=== PATIENT | female | born 1980 | race Caucasian/White ===

== ENCOUNTER 2016-10-02 05:20 | Inpatient (IN) | payer OTHER ==
[2016-09-21 11:08] VITALS: BMI 39.0
--- NOTE | 2016-09-21 11:41 | PAT Medication Instructions ---
Service Date Sep 21, 2016. Current Home Medication List Acetaminophen (Tylenol), 1,000 MG PO PRN Bupropion (Wellbutrin Sr), 150 MG PO AM/1300 Divalproex Sodium (Depakote Er), 1 TAB PO QAM Gemfibrozil (Lopid), 600 MG PO QAM Hydroxyzine Pamoate (Vistaril), 1 CAP PO QAM Prochlorperazine Maleate (Compazine), 10 MG PO Q6H PRN for NAUSEA Promethazine Hcl (Phenergan), 25 MG PO PRN Quetiapine Fumarate (Seroquel), 200 MG PO BID Ranitidine (Zantac), 150 MG PO QPM Topiramate (Topamax), 50 MG PO BID Medication Instructions For Your Scheduled Surgery - Hold the following medications the morning of surgery: Gemfibrozil (Lopid), 600 MG PO QAM - Take the following medications the morning of surgery with a sip of water: Topiramate (Topamax), 50 MG PO BID Prochlorperazine Maleate (Compazine), 10 MG PO Q6H PRN for NAUSEA Promethazine Hcl (Phenergan), 25 MG PO PRN Quetiapine Fumarate (Seroquel), 200 MG PO BID Hydroxyzine Pamoate (Vistaril), 1 CAP PO QAM Acetaminophen (Tylenol), 1,000 MG PO PRN Bupropion (Wellbutrin Sr), 150 MG PO AM/1300 Divalproex Sodium (Depakote Er), 1 TAB PO QAM - Take the following medications as scheduled the night before surgery: Topiramate (Topamax), 50 MG PO BID Ranitidine (Zantac), 150 MG PO QPM Prochlorperazine Maleate (Compazine), 10 MG PO Q6H PRN for NAUSEA Promethazine Hcl (Phenergan), 25 MG PO PRN Quetiapine Fumarate (Seroquel), 200 MG PO BID If you have any questions please call us at [phone] (Shaista Ames PA-C) or [phone] or [phone]
[2016-09-21 12:18] LABS: BASO % 0.3 %; BASO ABS # 0.03 K/uL (0-0.2); COMPLETE YES; EOS % 2.2 %; HEMATOCRIT 41.6 % (37-47); IG% 0.5 %; LYMPH % 43.7 %; LYMPH ABS # 4.94 K/uL (1.2-3.4); MEAN CELL VOLUME 89.3 fL (80-100); MEAN CORPUSCULAR HEMOGLOBIN 31.8 pg (25-34); MEAN CORPUSCULAR HGB CONC 35.6 g/dl (32-36); MEAN PLATELET VOLUME 9.6 fL (7.4-10.4); MONO % 4.4 %; NEUT % 48.9 %; PLATELET COUNT 376 K/uL (130-400); RED BLOOD COUNT 4.66 M/uL (4.2-5.4)
[2016-09-21 12:51] LABS: BUN/CREATININE RATIO 8.3 (10-20); CALCIUM 9.2 mg/dl (8.5-10.1); CREATININE 0.86 mg/dl (0.60-1.20); POTASSIUM 3.9 mmol/L (3.5-5.1)
[2016-10-02] VITALS (11 sets, daily range): BP systolic 114–165; BP diastolic 68–101; PULSE 48–89; TEMP 36.8–37.2; O2SAT 88–99; Ht 162.6 cm; Wt 104.1 kg
[~2016-10-02] VITALS: Ht 162.6 cm; Wt 104.1 kg
[~2016-10-02 05:20] MED LIST: ACET-1256 PO; BUPR-79 PO; DIVA500T3 PO; GEMF600T3 PO; HYDR25CA PO; PROC1TAB5 PO; PROM50TA3 PO; SRQ/200 PO; TOPI50TA16 PO; ZNTT/150 PO
[2016-10-02 05:52] LABS: HEMATOCRIT 42.6 % (37-47); MEAN CELL VOLUME 89.7 fL (80-100); MEAN CORPUSCULAR HEMOGLOBIN 31.4 pg (25-34); MEAN PLATELET VOLUME 9.8 fL (7.4-10.4); PLATELET COUNT 335 K/uL (130-400); RED BLOOD COUNT 4.75 M/uL (4.2-5.4); WHITE BLOOD COUNT 15.11 K/uL (4.8-10.8)
[2016-10-02] MEDS ORDERED: CEFAZOLIN 3000 MG/65 ML D5W 50 ML IV SCH (06:00)
[2016-10-02] MEDS ORDERED: LACTATED RINGER'S 1000ML 1,000 ML IV SCH ×2 (06:00→09:19)
[2016-10-02] MEDS ORDERED: FENTANYL CITRATE INJ 50 MCG/1 ML 2 ML VIAL ONE ×5 (06:07→08:43)
[2016-10-02] MEDS ORDERED: MIDAZOLAM HCL 1 MG/ML 2ML VIAL ONE (06:07)
[2016-10-02] MEDS ORDERED: PROPOFOL IV EMULSION 10 MG/ML 20 ML VIAL IV ONE (06:07)
[2016-10-02] MEDS ORDERED: SUCCINYLCHOLINE CHLORIDE 20 MG/ML 10 ML VIAL IV ONE (06:08)
[2016-10-02] MEDS ORDERED: DEXAMETHASONE SOD INJ 4 MG/ML VIAL ONE ×2 (06:08→07:25)
[2016-10-02] MEDS ORDERED: ONDANSETRON INJ 2 MG/ML 2 ML VIAL ONE (06:08)
[2016-10-02] MEDS ORDERED: LIDOCAINE HCL 2% 2 ML VIAL (20MG/ML) ONE (06:08)
[2016-10-02] MEDS ORDERED: ROCURONIUM BROMIDE 10 MG/ML 5 ML VIAL ONE ×2 (06:09→08:31)
[2016-10-02 06:11] LABS: BASO % 0.3 %; BASO ABS # 0.05 K/uL (0-0.2); COMPLETE YES; EOS % 2.2 %; IG% 0.6 %; LYMPH % 40.1 %; LYMPH ABS # 6.06 K/uL (1.2-3.4); MONO % 6.3 %; NEUT % 50.5 %; PREG INTERNAL NEGATIVE QC NEG CLEAR BACKGROUND; PREG INTERNAL POSITIVE QC POS CONTROL LINE
--- NOTE | 2016-10-02 06:42 | History & Physical Bridge Note ---
H&P Re-Evaluation Bridge Note: I have examined the patient, reviewed the History & Physical and in the interval since the performance of the History & Physical I have noted the following changes of clinical significance: No changes noted
[2016-10-02] MEDS ORDERED: MINERAL OIL LIGHT 10 ML BTL ONE (06:50)
[2016-10-02] MEDS ORDERED: METHYLENE BLUE 0.5% 10 ML VIAL ONE (06:50)
[2016-10-02] MEDS ORDERED: BUPIVACAINE 0.5 % 5 MG/1 ML MPF 30ML VIAL ONE (06:50)
[2016-10-02] MEDS ORDERED: ONDANSETRON INJ 2 MG/ML 2 ML VIAL IV PRN ×2 (08:00→09:30)
[2016-10-02] MEDS ORDERED: PROMETHAZINE HCL INJ 6.25 MG in SODIUM CHLORIDE 0.9% 50ML 50 ML IV PRN (08:00)
[2016-10-02] MEDS ORDERED: ATROPINE SULFATE 0.1 MG/ML 5ML SYR IV PRN (08:00)
[2016-10-02] MEDS ORDERED: EpHEDrine SULFATE INJ 50 MG/ML AMP IV PRN (08:00)
[2016-10-02] MEDS ORDERED: HYDROmorphone INJ 1 MG/ML SYR IV PRN (08:00)
[2016-10-02] MEDS ORDERED: NEOSTIGMINE METHYLSULFATE 5 MG/5 ML SYR ONE (08:25)
[2016-10-02] MEDS ORDERED: GLYCOPYRROLATE INJ 0.2 MG/ML VIAL ONE ×2 (08:25)
--- NOTE | 2016-10-02 09:26 | [facility] Post Operative Brief Note ---
Immediate Operative Summary Operative Date Oct 02, 2016. Pre-Operative Diagnosis Failed Endometrial Ablation, Menorrhagia Post-Operative Diagnosis Same as preoperative. Procedure(s) Performed Total Laparoscopic Hysterectomy, Cystoscopy Surgeon In Flight Refueling System Repairer Surgeon(s) Estimated Blood Loss 100ml Findings Upon laparoscopic exam uterus was slightly enlarged and boggy, at midline and freely mobile. Bilateral ovaries and tubes were normal. Prior bilateral tubal ligation noted. The uterus and cervix were successfully removed laparoscopically. Anesthesia was instructed to push methylene blue. A cystoscopy was performed noting bilateral ureteral openings spilled blue tinged urine indicating both ureters were intact. No injury or suture was noted within the bladder wall. Patient tolerated the surgery well and was sent to recovery with stable vital signs. Fluids (cc crystalloids) 1500 Specimens A. Uterus and Cervix. Drains Giordano to gravity Anesthesia General Complication(s) None Disposition Recovery Room / PACU
[2016-10-02] MEDS ORDERED: MAGNESIUM HYDROXIDE SUSP 30 ML UDC PO PRN (09:30)
[2016-10-02] MEDS ORDERED: IBUPROFEN 600 MG TAB PO PRN (09:30)
[2016-10-02] MEDS ORDERED: SENNA 8.6 MG TAB PO PRN (09:30)
[2016-10-02] MEDS ORDERED: KETOROLAC TROMETHAMINE 30 MG/ML VIAL IV. PRN (09:30)
[2016-10-02] MEDS ORDERED: BISACODYL 10 MG SUPP PR PRN (09:30)
[2016-10-02] MEDS: FENTANYL CITRATE INJ 50 MCG/1 ML 2 ML VIAL IV PRN ×4 (09:46→10:15)
--- NOTE | 2016-10-02 10:04 | OPERATIVE REPORT ---
DATE OF OPERATION: 10/02/2016 PREOPERATIVE DIAGNOSES: 1. Heavy menstrual bleeding. 2. Failed endometrial ablation. POSTOPERATIVE DIAGNOSES: Same. OPERATIVE PROCEDURE: Total laparoscopic hysterectomy and cystoscopy. SURGEON: Dr. Chen. SPEECH LANGUAGE PATHOLOGY ASSISTANT: Dr. Nj. ANESTHESIA: General. ESTIMATED BLOOD LOSS: 100 mL. IV FLUIDS: 1500 mL crystalloids. URINE OUTPUT: 150 mL clear yellow urine. SPECIMENS: Uterus and cervix to pathology. DRAINS: Giordano to gravity. COMPLICATIONS: None. DISPOSITION: Recovery room. OPERATIVE FINDINGS: Upon laparoscopic exam, uterus was slightly enlarged and boggy, midline and freely mobile. Bilateral ovaries and tubes were normal, prior bilateral tubal ligation was noted. The uterus and cervix were successfully removed laparoscopically. Anesthesia was then instructed to push methylene blue. Once the vaginal cuff was closed a cystoscopy was performed noting bilateral ureteral openings spilled blue-tinged urine indicating both ureters were intact. There was no injury or suture noted within the bladder wall as well. The patient tolerated the surgery well and was sent to recovery with stable vital signs. OPERATIVE PROCEDURE IN DETAIL: The patient was taken to the operating room where general anesthesia was administered. Once anesthesia was found to be adequate, the patient was placed in dorsal lithotomy position and was prepped and draped in a manner appropriate for the procedure. A weighted speculum was then placed into the vagina. The anterior lip of the cervix was grasped with a single tooth tenaculum. A medium size VCare uterine manipulator was then placed within the uterus in an anteverted fashion and was suture ligated to the cervix at the 12 o'clock and 6 o'clock position with 0 Vicryl suture. Once the VCare was then placed, a sterile Giordano catheter was placed within the bladder and remained indwelling throughout the entire procedure. At this point the laparoscopic portion of the procedure was ready. Attention was directed towards the abdomen and 0.5% Marcaine was injected below the umbilicus and an 11-mm skin incision was made subumbilically in a horizontal fashion. A Veress needle was then placed within the abdomen. Normal saline was injected with no fecal content aspirated. Pneumoperitoneum was then created. The Veress needle was then removed and an 11 mm trocar was then placed within the abdomen under direct laparoscopic visualization. A second 11 mm skin incision was made on the left side of the abdomen and a second 11 mm trocar was placed within the abdomen under direct laparoscopic visualization. A third 11 mm skin incision was made on the right side of the abdomen and a third 11 mm trocar was placed within the abdomen under direct laparoscopic visualization. A thorough examination of the abdomen and pelvis was then performed. Attention was directed towards the right adnexa where the right round ligament was cauterized and transected. The right uteroovarian ligament was cauterized and transected, continued inferiorly through the broad ligament. The broad ligament was then and the anterior leaf of the broad ligament was cauterized and transected across the lower uterine segment, creating a bladder flap. The bladder was pushed away from the lower uterine segment. Attention was then directed towards the left adnexa, which likewise the round ligament and uteroovarian ligaments were cauterized and transected. We continued inferiorly through the broad ligament. The broad ligament was then and the anterior leaf of the ligament was then cauterized and transected across the lower uterine segment on the left side. The bladder was then pushed away from the lower uterine segment. The ascending uterine arteries were cauterized and transected bilaterally, continued inferiorly through the cardinal uterosacral complex, cauterizing and transecting as we continued inferiorly. Once we were at the level of the VCare, the cervix and uterus were amputated circumferentially with the LigaSure. Once the specimens were completely amputated the uterus and cervix were then removed from the vagina and sent to pathology. A sterile glove was then placed within the vagina to maintain the pneumoperitoneum. The vaginal cuff was then copiously irrigated with warm saline solution and aspirated. The vaginal cuff was then closed with 0 Vicryl suture with the EndoStitch in continuous locking fashion. Upon cystoscopic exam, the bladder was intact. Bilateral ureteral openings spilled blue tinged urine indicating that bilateral ureters were intact. At this point, the cystoscope was removed. A sterile Giordano catheter was replaced back within the bladder. Attention was then directed towards the abdomen where all 3 trocars were removed. The fascia of all 3 incisions were reapproximated with 0 Vicryl suture in an interrupted [id number] fashion. All 3 skin incisions were closed with 4-0 Monocryl in a subcuticular fashion. Excellent hemostasis was noted. All sponge and instrument counts were found to be correct x2. The patient tolerated the surgery well and was sent to recovery with stable vital signs. I attest to the content of the Intraoperative Record and any orders documented therein. Any exceptio ns are noted below.
--- NOTE | 2016-10-02 10:45 | Anesthesiology Progress Note ---
Anesthesia Post Op Note Date & Time Oct 02, 2016 at 10:45 Vital Signs Pain Intensity: 3 Vital Signs Past 12 Hours Date Time Temp Pulse Resp B/P Pulse Ox O2 Delivery O2 Flow Rate FiO2 10/02/16 10:39 37.1 10/02/16 10:30 68 21 10/02/16 10:30 71 21 163/94 96 10/02/16 10:25 54 22 144/80 95 10/02/16 10:25 53 22 10/02/16 10:20 73 21 10/02/16 10:20 72 21 136/97 95 10/02/16 10:19 55 21 10/02/16 10:19 56 21 96 10/02/16 10:15 150/90 10/02/16 10:14 79 18 10/02/16 10:14 78 18 95 10/02/16 10:10 159/98 10/02/16 10:09 78 27 10/02/16 10:09 81 27 95 10/02/16 10:05 162/84 10/02/16 10:04 64 21 10/02/16 10:04 63 21 96 10/02/16 10:00 162/100 10/02/16 09:59 86 26 98 10/02/16 09:59 85 26 10/02/16 09:55 155/88 10/02/16 09:54 72 22 10/02/16 09:54 70 22 93 10/02/16 09:51 149/99 10/02/16 09:49 69 16 94 10/02/16 09:49 70 16 10/02/16 09:46 161/93 10/02/16 09:44 67 21 10/02/16 09:44 67 21 99 10/02/16 09:42 162/97 10/02/16 09:39 65 20 10/02/16 09:39 70 20 150/90 99 10/02/16 09:39 36.4 70 20 150/90 98 Mask 10 10/02/16 05:41 36.8 67 20 135/71 96 Room Air Notes Mental Status: alert / awake / arousable, participated in evaluation Pt Amnestic to Procedure: Yes Nausea / Vomiting: adequately controlled Pain: adequately controlled Airway Patency, RR, SpO2: stable & adequate BP & HR: stable & adequate Hydration State: stable & adequate Anesthetic Complications: no major complications apparent
[2016-10-02] MEDS: OXYCODONE/ACETAMINOPHEN 5-325 TAB PO PRN ×2 (14:02→20:34)
[2016-10-02 19:22] LABS: HEMATOCRIT 38.2 % (37-47)
[2016-10-02] MEDS: TOPIRAMATE 50 MG TAB PO SCH (20:35)
[2016-10-02] MEDS: RANITIDINE HCL 150 MG TAB PO SCH (20:35)
[2016-10-02] MEDS: QUETIAPINE FUMARATE 200 MG TAB PO SCH (20:35)
[2016-10-02] MEDS ORDERED: TOPIRAMATE 25 MG TAB PO SCH (21:00)
[2016-10-03 03:30] VITALS: BP 123/73; PULSE 77; TEMP 37; O2SAT 96
[2016-10-03 03:31] VITALS: O2SAT 94
[2016-10-03 05:00] VITALS: O2SAT 93
[2016-10-03 07:09] LABS: BASO % 0.1 %; BASO ABS # 0.02 K/uL (0-0.2); COMPLETE YES; EOS % 0.3 %; HEMATOCRIT 34.9 % (37-47); IG% 0.3 %; LYMPH % 22.8 %; MEAN CELL VOLUME 86.8 fL (80-100); MEAN CORPUSCULAR HEMOGLOBIN 30.1 pg (25-34); MEAN CORPUSCULAR HGB CONC 34.7 g/dl (32-36); MEAN PLATELET VOLUME 9.7 fL (7.4-10.4); MONO % 7.2 %; NEUT % 69.3 %; PLATELET COUNT 302 K/uL (130-400); RED BLOOD COUNT 4.02 M/uL (4.2-5.4); WHITE BLOOD COUNT 17.58 K/uL (4.8-10.8)
[2016-10-03 07:45] VITALS: BP 134/85; PULSE 69; TEMP 37.1; O2SAT 95
[2016-10-03] MEDS: OXYCODONE/ACETAMINOPHEN 5-325 TAB PO PRN ×2 (08:21→08:25)
[2016-10-03] MEDS: RANITIDINE HCL 150 MG TAB PO SCH (08:22)
[2016-10-03] MEDS: QUETIAPINE FUMARATE 200 MG TAB PO SCH (08:23)
[2016-10-03] MEDS: TOPIRAMATE 50 MG TAB PO SCH (08:23)
--- NOTE | 2016-10-03 08:31 | Surgery Progress Note ---
Surgery Progress Note Date of Service Oct 03, 2016. Subjective Post OP Day: 1 + diet (tolerating PO food and meds), + pain controlled, No SOB, No bowel movement, No chest pain, No complaints, No nausea, No vomiting Objective Vital Signs: Date Time Temp Pulse Resp B/P Pulse Ox O2 Delivery O2 Flow Rate FiO2 10/03/16 05:00 93 Room Air 10/03/16 03:31 94 Nasal Cannula 1.0 10/03/16 03:30 37.0 77 18 123/73 96 Nasal Cannula 2.0 10/02/16 23:20 37.1 89 20 132/75 94 Nasal Cannula 2.0 10/02/16 23:20 94 Nasal Cannula 2.0 10/02/16 21:50 93 Nasal Cannula 2.0 10/02/16 21:50 88 Room Air 10/02/16 19:15 36.9 84 20 159/72 98 Nasal Cannula 2.0 10/02/16 16:15 96 Nasal Cannula 2.0 10/02/16 16:15 36.9 87 16 127/76 94 Nasal Cannula 2.0 10/02/16 13:55 36.8 56 18 165/82 96 Room Air 10/02/16 12:45 72 20 114/68 99 Nasal Cannula 2.0 10/02/16 11:45 36.9 81 20 151/91 98 Nasal Cannula 2.0 10/02/16 11:16 96 Nasal Cannula 2.0 10/02/16 11:15 48 16 126/82 89 Room Air 10/02/16 10:45 96 Nasal Cannula 2.0 10/02/16 10:45 37.2 79 16 148/101 96 Nasal Cannula 2.0 10/02/16 10:45 Nasal Cannula 2.0 10/02/16 10:39 37.1 10/02/16 10:30 68 21 10/02/16 10:30 71 21 163/94 96 10/02/16 10:25 54 22 144/80 95 10/02/16 10:25 53 22 10/02/16 10:20 73 21 10/02/16 10:20 72 21 136/97 95 10/02/16 10:19 55 21 10/02/16 10:19 56 21 96 10/02/16 10:15 150/90 10/02/16 10:14 79 18 10/02/16 10:14 78 18 95 10/02/16 10:10 159/98 10/02/16 10:09 78 27 10/02/16 10:09 81 27 95 10/02/16 10:05 162/84 10/02/16 10:04 64 21 10/02/16 10:04 63 21 96 10/02/16 10:00 162/100 10/02/16 09:59 86 26 98 10/02/16 09:59 85 26 10/02/16 09:55 155/88 10/02/16 09:54 72 22 10/02/16 09:54 70 22 93 10/02/16 09:51 149/99 10/02/16 09:49 69 16 94 10/02/16 09:49 70 16 10/02/16 09:46 161/93 10/02/16 09:44 67 21 10/02/16 09:44 67 21 99 10/02/16 09:42 162/97 10/02/16 09:39 65 20 10/02/16 09:39 70 20 150/90 99 10/02/16 09:39 36.4 70 20 150/90 98 Mask 10 General Appearance: WD/WN, no apparent distress Head: normocephalic, atraumatic Neck: supple, no adenopathy, thyroid normal, no JVD, no carotid bruits, trachea midline Respiratory/Chest: chest non-tender, lungs clear, normal breath sounds, no respiratory distress, no accessory muscle use Cardiovascular: regular rate, rhythm, no edema, no gallop, no JVD, no murmur Abdomen: normal bowel sounds, non tender, non distended, soft, no organomegaly , no pulsatile mass Incision(s): clean, dry, intact, no erythema, no drainage Extremities: normal range of motion, non-tender, normal inspection, no pedal edema, no calf tenderness, normal capillary refill, pelvis stable Laboratory Results: Results Past 24 Hours Test 10/02/16 19:12 10/03/16 06:47 Range/Units Hemoglobin 13.5 12.1 12.0-16.0 g/dL Hematocrit 38.2 34.9 37-47 % White Blood Count 17.58 4.8-10.8 K/uL Red Blood Count 4.02 4.2-5.4 M/uL Mean Corpuscular Volume 86.8 80-100 fL Mean Corpuscular Hemoglobin 30.1 25-34 pg Mean Corpuscular Hemoglobin Concent 34.7 32-36 g/dl Platelet Count 302 130-400 K/uL Mean Platelet Volume 9.7 7.4-10.4 fL Neutrophils (%) (Auto) 69.3 % Lymphocytes (%) (Auto) 22.8 % Monocytes (%) (Auto) 7.2 % Eosinophils (%) (Auto) 0.3 % Basophils (%) (Auto) 0.1 % Neutrophils # (Auto) 12.18 1.4-6.5 K/uL Lymphocytes # (Auto) 4.00 1.2-3.4 K/uL Monocytes # (Auto) 1.27 0.11-0.59 K/uL Eosinophils # (Auto) 0.05 0-0.5 K/uL Basophils # (Auto) 0.02 0-0.2 K/uL RDW Standard Deviation 42.8 36.4-46.3 fL RDW Coefficient of Variation 13.6 11.5-14.5 % Immature Granulocyte % (Auto) 0.3 % Immature Granulocyte # (Auto) 0.06 0.00-0.02 K/uL Assessment & Plan Lap hysterectomy Day #1 pt doing well disch home with instructions
[2016-10-03] MEDS ORDERED: OXYC-57 PO (08:34)
--- NOTE | 2016-10-03 08:34 | Discharge Instructions ---
Discharge Instructions Admission Reason for Admission: Heavy Menstral Bleeding Discharge Discharge Diagnosis / Problem: Discharge Goals Goal(s): Continuing SSIS ARCHITECT care Activity Recommendations Activity Limitations: as noted below . Current Hospital Diet Patient's current hospital diet: Regular Diet Discharge Diet Recommended Diet: Regular Diet Procedures Procedures Performed: Total Laparoscopic Hysterectomy, Cystoscopy Pending Studies Studies pending at discharge: no Medical Emergencies . Who to Call and When: Medical Emergencies: If at any time you feel your situation is an emergency, please call 911 immediately. . Non-Emergent Contact Non-Emergency issues call your: Specialist Call Non-Emergent contact if: you have a fever, your pain is not controlled, wound has increased drainage . . "Provider Documentation" section prepared by Shaheen Nj. VTE Core Measure Inpt VTE Proph given/why not?: Treatment not indicated
[2016-10-03] MEDS ORDERED: BuPROPion SR 150 MG TABCR PO SCH (09:00)
[2016-10-03] MEDS ORDERED: GEMFIBROZIL 600 MG TAB PO SCH (09:00)
[2016-10-03] MEDS ORDERED: DIVALPROEX 500 MG EXTENDED RELEASE TAB PO SCH (09:00)
[2016-10-03 09:19] VITALS: BP 134/85; PULSE 69; TEMP 37.1; O2SAT 95
--- NOTE | 2016-10-06 07:16 | Discharge Summary ---
Discharge Summary Date of Service Oct 06, 2016. Discharge Summary Admission Date: Oct 02, 2016 at 05:30 Discharge Date: Oct 03, 2016 Discharge Disposition: Home Principal Diagnosis: Heavy menstrual Bleeding, Failed Endometrial Ablation Procedures: Total Laparoscopic Hysterectomy, Cystoscopy Medication Reconciliation New Medications: Oxycodone/Acetaminophen 5MG/325MG (Percocet 5MG/325MG) Tab 1-2 TAB PO Q4H PRN for NOLAN, Cramping, edema, #30 TAB PAIN Continued Medications: Acetaminophen (Tylenol) 500 Mg Tab 1000 MG PO PRN, TAB Bupropion (Wellbutrin Sr) 150 Mg Ertab 150 MG PO AM/1300, TAB Divalproex Sodium (Depakote Er) 500 Mg Tab 1 TAB PO QAM, TAB 2 Refills Gemfibrozil (Lopid) 600 Mg Tab 600 MG PO QAM, TAB Hydroxyzine Pamoate (Vistaril) 25 Mg Cap 1 CAP PO QAM for 30 Days, #30 CAP Prochlorperazine Maleate (Compazine) 10 Mg Tab 10 MG PO Q6H PRN for NAUSEA, TAB Promethazine Hcl (Phenergan) 50 Mg Tab 25 MG PO PRN, TAB Quetiapine Fumarate (Seroquel) 200 Mg Tab 200 MG PO BID, TAB Ranitidine (Zantac) 150 Mg Tab 150 MG PO QPM, TAB Topiramate (Topamax) 50 Mg Tab 50 MG PO BID, TAB Admission Information HPI (per Admitting provider): Patient is a 36 y/o with a long history of heavy menstrual bleeding and has tried multiple medical treatments along with an endometrial ablation in March of 2016. She continued to have heavy and painful periods and therefore wanted to proceed with definitive surgery via laparoscopic hysterectomy. Risks, benefits and alternatives were discussed and informed consent was signed. Physical Exam (per Admitting): General Appearance: WD/WN, no apparent distress Respiratory/Chest: chest non-tender, lungs clear Cardiovascular: regular rate, rhythm Abdomen/GI: normal bowel sounds, soft Neurologic/Psych: alert, oriented x 3 Skin: normal color, warm/dry, no rash Hospital Course Patient underwent a scheduled total laparoscopic hysterectomy on the day of admission without complications. Her postoperative recovery was uncomplicated. On POD # 1 she was ambulating without difficulty. Pain was well controlled. Tolerating regular diet. Incisions were clean,dry and intact. She was discharged on POD # 1 with discharge instructions. Total time spent on discharge = 20 mins This includes examination of the patient, discharge planning, medication reconciliation, and communication with other providers. Discharge Instructions POST OPERATIVE: BOWEL FUNCTION/MEDICATIONS: 1. Constipation pain and discomfort are the most common complaints 5-7 days after surgery. Points 2-6 address the things that can help. 2. Chewing gum can help stimulate the gut and help improve digestion and motility. 3. Milk of Magnesia 1-2 times per day until return of bowel function. 4. Colace is a stool softener that helps. Taking this 2-3 times per day until bowel function returns to normal is highly recommended. 5. Dulcolax is a laxative that may be used if several days have passed without a bowel movement. Alternatively Miralax may be used daily instead. 6. Drink plenty of fluids as this will also reduce constipation. 7. Narcotic pain medications will be prescribed by your physician. They are safe to use and we encourage you to use them. If you are not allergic, ibuprofen will also be prescribed. Many patients will be able to transition off of the narcotic medications to ibuprofen by postoperative day 3. ACTIVITY RECOMMENDATIONS: 1. Get plenty of rest and listen to your body. If you are tired, take a nap. 2. You may shower, but do not take a tub bath until you see your doctor at the 2 week post operative visit. 3. Absolutely NO intercourse and nothing in the vagina until you are examined by your doctor at the 6 week visit. At that visit it will be determined when such activities can be resumed. This can range from 6-12 weeks after your surgery depending on healing time. 4. The main physical activity in the first week should be walking. By the second week you can slowly increase activity. There are no limits on walking up and down stairs. 5. Do not lift more than 5-10 lbs for 4 weeks. Remember the "one-handed rule", i.e. if you can lift something with only one hand it's likely okay. 6. Minimize letter of credit clerk like vacuuming and exercising for 4 weeks. "Overdoing it" can lead to incisions not healing, pain and vaginal bleeding , so again, listen to your body. 7. Driving can be resumed when you feel able. Do not drive within 24 hours of taking a narcotic medication. EXPECTATIONS: 1. Vaginal spotting, bleeding and discharge are common after surgery. There may even be an odor to the discharge which is often related to sutures used in the vagina. If you experience heavy vaginal bleeding, call the office number day or night [phone]. 2. Bladder discomfort is common after surgery from the catheter. This usually resolves in 1-2 weeks. 3. By the end of the 3rd or 4th week you should be feeling much better. It may take up to 6 weeks for your energy levels to return to normal. 4. Narcotic medications have side effects such as: dizziness, headache, nausea and/or vomiting. If you suspect your pain medication is causing problems, call our office and we may be able to prescribe an alternate medication. 5. The skin incisions are often covered with a liquid bandage. This will gradually peel off over time. CALL THE OFFICE IF YOU HAVE ANY OF THE FOLLOWIN. Temperature of 101 degrees or higher. 2. Severe abdominal or pelvic pain not relieved by pain medication. 3. Persistent nausea or vomiting. 4. Increased pain with urination or difficulty urinating. 5. Bright red bleeding that soaks more than 1 pad per hour. CONTACT PHONE NUMBERS: Main Office: [phone] FOLLOW-UP: Post-Operative Appointments: * Individual instructions will have been given about the timing of your first examination, but this is usually at the end of the second week home. * You will need to call the office at [phone] soon after discharge to make the appointment for your post-op check-up if it has not already been scheduled. * Additional information regarding activity, sexual intercourse and when to return to work will be given at this appointment. WE WISH YOU A SPEEDY RECOVERY!
[2017-04-21] MEDS ORDERED: HYDR-5688 PO (15:08)
== END 2016-10-03 10:15 | disposition home or self-care (01) | DRG 743 ==
LOC: ENRESERVDT → ENRESERVTM → C.ACU 05:20 → C.MS4N 05:30
PROVIDERS: ADMIT Obstetrics & Gynecology; ATTEND Obstetrics & Gynecology
PROC: 0TJB8ZZ Inspection of Bladder, Via Natural or Artificial Opening Endoscopic (ICD-10-PCS; principal; 2016-10-02 07:00)
PROC: 0UT94ZZ Resection of Uterus, Percutaneous Endoscopic Approach (ICD-10-PCS; principal; 2016-10-02 07:00)
DX: N92.0 Excessive and frequent menstruation with regular cycle (principal); F17.210 Nicotine dependence, cigarettes, uncomplicated

== ENCOUNTER → 2017-04-16 | Outpatient (CLI) | payer OTHER ==
[~2017-04-16] MED LIST changes: +HYDR-5688 PO; +OXYC-57 PO
[2017-04-16 16:36] LABS: HEMATOCRIT 41.7 % (37-47); MEAN CELL VOLUME 90.1 fL (80-100); MEAN CORPUSCULAR HEMOGLOBIN 31.5 pg (25-34); MEAN PLATELET VOLUME 10.5 fL (7.4-10.4); PLATELET COUNT 372 K/uL (130-400); RED BLOOD COUNT 4.63 M/uL (4.2-5.4)
[2017-04-16 16:42] LABS: INR 0.9 (0.9-1.1)
[2017-04-16 16:45] LABS: BLOOD UREA NITROGEN 10 mg/dl (7-18); BUN/CREATININE RATIO 11.4 (10-20); CALCIUM 9.6 mg/dl (8.5-10.1); CARBON DIOXIDE 26 mmol/L (21-32); CHLORIDE 108 mmol/L (98-107); CREATININE 0.87 mg/dl (0.60-1.20); GLUCOSE 86 mg/dl (70-99); POTASSIUM 4.3 mmol/L (3.5-5.1); SODIUM 138 mmol/L (136-145)
[2017-04-16 17:08] LABS: BASO % 0.3 %; BASO ABS # 0.04 K/uL (0-0.2); COMPLETE YES; EOS % 2.1 %; IG% 0.5 %; LYMPH % 46.3 %; LYMPH ABS # 5.69 K/uL (1.2-3.4); MONO % 5.9 %; NEUT % 44.9 %
== END | disposition home or self-care (01) ==
LOC: C.LABBFT 14:19
PROVIDERS: ATTEND Orthopaedic Surgery
DX: M25.531 Pain in right wrist (principal)

== ENCOUNTER → 2017-04-21 | Day surgery (SDC) | payer OTHER ==
[2017-04-19 15:16] VITALS: BMI 38.0
[~2017-04-21] VITALS: Ht 162.6 cm; Wt 101.8 kg
[~2017-04-21] MED LIST changes: +ATROPINE SULFATE 0.1 MG/ML 5ML SYR IV PRN; +BUPIVACAINE 0.5 % 5 MG/1 ML MPF 30ML VIAL ONE; +BUPIVACAINE/EPINEPHRINE 0.5% MPF 1:200,000 30 ML VIAL ONE; +CEFAZOLIN 2000 MG/60 ML D5W IV SCH; +DEXAMETHASONE SOD INJ 4 MG/ML VIAL ONE; +EpHEDrine SULFATE INJ 50 MG/ML AMP IV PRN; +FENTANYL CITRATE INJ 50 MCG/1 ML 2 ML VIAL IV PRN; +FENTANYL CITRATE INJ 50 MCG/1 ML 2 ML VIAL ONE; +HYDROCODONE/ACETAMOPHEN 5/325MG TAB PO PRN; +HYDROmorphone INJ 1 MG/ML SYR IV PRN; +KETAMINE HCL INJ 50 MG/ML 10 ML VIAL ONE; +LABETALOL HCL IV 5 MG/ML 20ML IV PRN; +LACTATED RINGER'S 1000ML 1,000 ML IV SCH; +LACTATED RINGER'S 1000ML 500 ML IV ONE; +LIDOCAINE HCL 2% 2 ML VIAL (20MG/ML) ONE; +MEPERIDINE HCL 25 MG/ML CARP IV PRN; +METHYLPREDNISOLONE ACETATE 80 MG/ML VIAL ONE; +MIDAZOLAM HCL 1 MG/ML 2ML VIAL ONE; +ONDANSETRON INJ 2 MG/ML 2 ML VIAL IV PRN; +ONDANSETRON INJ 2 MG/ML 2 ML VIAL ONE; +PROMETHAZINE HCL INJ 6.25 MG in SODIUM CHLORIDE 0.9% 50ML 50 ML IV PRN; +PROPOFOL IV EMULSION 10 MG/ML 20 ML VIAL IV ONE; +SODIUM CHLORIDE 0.9% 1000ML 1,000 ML IV SCH
--- NOTE | 2017-04-21 07:13 | History and Physical ---
History & Physical Date Apr 21, 2017. Chief Complaint Patient presents with a painful volar ganglion right wrist History of Present Illness The patient is a 36 year old female with complaints of painful volar ganglion right wrist Nourse wants bracing and activity modification Past Medical/Surgical History Medical Problems: (1) Bipolar disorder (2) DEPRESSIVE DISORDER NEC (3) Heavy menstrual bleeding (4) Left arm numbness (5) Migraine (6) PTSD (post-traumatic stress disorder) (7) Right ankle sprain (8) Right arm numbness (9) Sprain of knee (10) TOBACCO USE DISORDER Surgical Problems: (1) Hx of cholecystectomy (2) S/P laparoscopic hysterectomy Additional History Hepatic Disease: No Endocrine Disorder: No Kidney Disease: No Hypertension: No Heart Disease: No Bleeding Tendencies: No Infectious Diseases: No Allergies Coded Allergies: Aspirin (Verified Allergy, Severe, CAN'T BREATH, 04/19/17) Food (Verified Allergy, Unknown, ALL SEAFOOD-SWELLING SOB HIVES WITH EATING OR SMELLING, 04/19/17) Home Medications Scheduled Acetaminophen (Tylenol), 1,000 MG PO PRN Bupropion (Wellbutrin Sr), 150 MG PO QAM Divalproex Sodium (Depakote Er), 1 TAB PO BID Gemfibrozil (Lopid), 600 MG PO QAM Hydroxyzine Pamoate (Vistaril), 1 CAP PO TID Quetiapine Fumarate (Seroquel), 200 MG PO BID Ranitidine (Zantac), 150 MG PO DAILY Topiramate (Topamax), 50 MG PO BID Physical Examination Skin: warm/dry, no rash Eyes: normal inspection, EOMI, sclerae normal ENT: normal ENT inspection, pharynx normal Head: normocephalic, atraumatic Neck: supple, no adenopathy, trachea midline Respiratory/Chest: lungs clear, normal breath sounds, no respiratory distress Cardiovascular: regular rate, rhythm, no edema, no murmur Abdomen / GI: normal bowel sounds, non tender Back: normal inspection Extremities: normal inspection, normal range of motion, + pertinent finding Neurologic/Psych: no motor/sensory deficits, alert, normal reflexes, oriented x 3 Diagnosis Painful volar ganglion right wrist plan for surgical excision Plan of Treatment Painful volar ganglion plan for excision and postoperative immobilization
--- NOTE | 2017-04-21 07:16 | History and Physical ---
History & Physical Date Apr 21, 2017. Chief Complaint Volar ganglion right wrist painful large muscle conservative therapy painful cyst right medial heel History of Present Illness The patient is a 36 year old female with complaints of painful for ganglion right wrist painful cyst right medial heel Past Medical/Surgical History Medical Problems: (1) Bipolar disorder (2) DEPRESSIVE DISORDER NEC (3) Heavy menstrual bleeding (4) Left arm numbness (5) Migraine (6) PTSD (post-traumatic stress disorder) (7) Right ankle sprain (8) Right arm numbness (9) Sprain of knee (10) TOBACCO USE DISORDER Surgical Problems: (1) Hx of cholecystectomy (2) S/P laparoscopic hysterectomy Additional History Hepatic Disease: No Endocrine Disorder: No Kidney Disease: No Hypertension: No Heart Disease: No Bleeding Tendencies: No Infectious Diseases: No Allergies Coded Allergies: Aspirin (Verified Allergy, Severe, CAN'T BREATH, 04/19/17) Food (Verified Allergy, Unknown, ALL SEAFOOD-SWELLING SOB HIVES WITH EATING OR SMELLING, 04/19/17) Home Medications Scheduled Acetaminophen (Tylenol), 1,000 MG PO PRN Bupropion (Wellbutrin Sr), 150 MG PO QAM Divalproex Sodium (Depakote Er), 1 TAB PO BID Gemfibrozil (Lopid), 600 MG PO QAM Hydroxyzine Pamoate (Vistaril), 1 CAP PO TID Quetiapine Fumarate (Seroquel), 200 MG PO BID Ranitidine (Zantac), 150 MG PO DAILY Topiramate (Topamax), 50 MG PO BID Physical Examination Skin: warm/dry, no rash Eyes: normal inspection, EOMI, sclerae normal ENT: normal ENT inspection, pharynx normal Head: normocephalic, atraumatic Neck: supple, no adenopathy, trachea midline Respiratory/Chest: lungs clear, normal breath sounds, no respiratory distress Cardiovascular: regular rate, rhythm, no edema, no murmur Abdomen / GI: normal bowel sounds, non tender Back: normal inspection Extremities: normal inspection, normal range of motion Neurologic/Psych: no motor/sensory deficits, alert, normal reflexes, oriented x 3 Diagnosis Painful right wrist painful cyst right medial heel plan for excision of volar ganglion right wrist aspiration injection of right medial heel Plan of Treatment Postoperative pain management and immobilization antibiotics
[2017-04-21 11:49] VITALS: BP 143/93; PULSE 71; TEMP 36.8; O2SAT 98; Ht 162.6 cm; Wt 101.8 kg
--- NOTE | 2017-04-21 15:09 | Discharge Instructions ---
Discharge Instructions Date of Service Apr 21, 2017. Visit Reason for Visit: Right Wrist Ganglion Cyst Discharge Discharge Diagnosis / Problem: right wrist ganglion cyst Discharge Goals Goal(s): Decrease discomfort, Improve function, Increase independence Activity Recommendations Activity Limitations: as noted below Lifting Limitations: no more than 5 pounds Anesthesia . Post Anesthesia Instructions: If you have had General Anesthesia or IV Sedation: * Do not drive today. * Resume driving when surgeon permits. * Do not make important decisions or sign legal documents today. * Call surgeon for: 1. Temperature elevations greater than 101 degrees F. 2. Uncontrollable pain. 3. Excessive bleeding. 4. Persistent nausea and vomiting. 5. Medication intolerance (nausea, vomiting or rash). * For nausea and vomiting use only clear liquids such as: tea, soda, bouillon until nausea subsides, then gradually increase diet as tolerated. * If you have any concerns or questions, call your surgeon's office. If physician is unavailable and it is an emergency, call 911 or go to the nearest emergency room. . Instructions / Follow-Up Instructions / Follow-Up ACTIVITY RECOMMENDATIONS: * Avoid lifting anything heavier than a medium water glass until your first post operative visit. SPECIAL CARE INSTRUCTIONS: * Your bandage should be left in place until 48 hours after your surgery. * Some drainage onto the dressing may occur. This is normal. * If the bandage feels excessively tight, you may loosen the elastic bandage. Then call the physician's office for further instructions. * If possible, keep your hand elevated above the level of your heart for the first 2 post operative days. You may use a sling if necessary. * You should move your fingers regularly (50-100 motions per hour) unless otherwise instructed. SPECIAL PRECAUTIONS: * If you notice increased drainage, fever over 101 degrees F. or severe, unremitting pain, call your physician/office at . * You may have been prescribed pain medication. If you experience nausea and/or skin rash, discontinue this medication and contact our office for an alternative medication. FOLLOW UP VISIT: If appointment is not already scheduled: Please call [facility] to make a follow-up appointment after your surgery at . Diet Recommendations Recommended Home Diet: resume previous diet Pending Studies Studies pending at discharge: no Medical Emergencies . Who to Call and When: Medical Emergencies: If at any time you feel your situation is an emergency, please call 911 immediately. . Non-Emergent Contact Non-Emergency issues call your: Primary Care Provider, Surgeon . . "Provider Documentation" section prepared by Jose Gibson. . [place] Drug Monitoring Program Search Results: patient reviewed within database, no issues identified
[2017-04-21] MEDS: FENTANYL CITRATE INJ 50 MCG/1 ML 2 ML VIAL IV PRN ×2 (15:44→15:49)
--- NOTE | 2017-04-21 15:48 | [facility] Operative Report ---
Operative Report Operative Date Apr 21, 2017. Pre-Operative Diagnosis Painful Volar ganglion cyst right wrist. painful right medial heel Post-Operative Diagnosis Volar ganglion right wrist cyst medial right heel Procedure(s) Performed Right Wrist Excision Volar Ganglion Cyst; Right Foot Aspiration and Injection of the Medial Heel Surgeon Dr. Shelby Photoresist Contact Printer Surgeon(s) none Estimated Blood Loss 2mL Findings Painful volar ganglion right wrist painful sensory medial heel Specimens A. Right wrist ganglion cyst Complication(s) None Disposition Recovery Room / PACU Indications Painful volar ganglion right wrist painful cyst medial aspect right heel Description of Procedure After proper prepping draping the right upper extremity a 2 severe incisions made over the region of the volar aspect of the right painful ganglion the second was carried down to the stalk of the gangrenous was particular rash instruction radial artery at all times subsequently the wound was irrigated. Steris a solution the space of the stalk was amputated the cyst was sent for pathology as is without a ganglion cyst the stalk was sutured with 4-0 Monocryl subcutaneous and skin was closed with 5-0 Monocryl and Steri-Strips sterile compressive dressing placed as well as a volar splint and under sterile conditions the right medial aspect of the palpable cyst over the medial heel was aspirated and injected with half cc of Depo-Medrol the patient usual taken cover stable condition. I attest to the content of the Intraoperative Record and any orders documented therein. Any exceptions are noted below.
--- NOTE | 2017-04-21 16:22 | Anesthesiology Progress Note ---
Anesthesia Post Op Note Date & Time Apr 21, 2017 at 16:21 Vital Signs Pain Intensity: 4 Vital Signs Past 12 Hours Date Time Temp Pulse Resp B/P (MAP) Pulse Ox O2 Delivery O2 Flow Rate FiO2 04/21/17 16:15 36.8 50 19 147/86 99 Room Air 04/21/17 16:05 60 18 149/107 98 Room Air 04/21/17 15:55 49 16 149/106 99 Oxymask 10 04/21/17 15:45 65 15 155/92 96 Oxymask 10 04/21/17 15:36 36.0 80 16 154/97 97 Oxymask 10 04/21/17 11:49 36.8 71 20 143/93 (110) 98 Room Air Notes Mental Status: alert / awake / arousable, participated in evaluation Pt Amnestic to Procedure: Yes Nausea / Vomiting: adequately controlled Pain: adequately controlled Airway Patency, RR, SpO2: stable & adequate BP & HR: stable & adequate Hydration State: stable & adequate Anesthetic Complications: no major complications apparent
[2017-04-21 16:30] VITALS: BP 156/75; PULSE 54; TEMP 36.7; O2SAT 100
[2017-04-21 17:00] VITALS: BP 142/71; PULSE 63; O2SAT 97
[2017-04-21 17:30] VITALS: BP 143/85; PULSE 63; TEMP 36.8; O2SAT 97
== END | disposition home or self-care (01) ==
LOC: C.ACU 11:23
PROVIDERS: ATTEND Orthopaedic Surgery
DX: M67.431 Ganglion, right wrist (principal); L72.8 Other follicular cysts of the skin and subcutaneous tissue; F31.9 Bipolar disorder, unspecified; F43.10 Post-traumatic stress disorder, unspecified; Z72.0 Tobacco use; Z79.899 Other long term (current) drug therapy

== ENCOUNTER → 2017-09-16 | Outpatient (CLI) | payer OTHER ==
[~2017-09-16] MED LIST changes: -ACET-1256 PO; -ATROPINE SULFATE 0.1 MG/ML 5ML SYR IV PRN; -BUPIVACAINE 0.5 % 5 MG/1 ML MPF 30ML VIAL ONE; -BUPIVACAINE/EPINEPHRINE 0.5% MPF 1:200,000 30 ML VIAL ONE; -CEFAZOLIN 2000 MG/60 ML D5W IV SCH; -DEXAMETHASONE SOD INJ 4 MG/ML VIAL ONE; -EpHEDrine SULFATE INJ 50 MG/ML AMP IV PRN; -FENTANYL CITRATE INJ 50 MCG/1 ML 2 ML VIAL IV PRN; -FENTANYL CITRATE INJ 50 MCG/1 ML 2 ML VIAL ONE; -HYDROCODONE/ACETAMOPHEN 5/325MG TAB PO PRN; -HYDROmorphone INJ 1 MG/ML SYR IV PRN; -KETAMINE HCL INJ 50 MG/ML 10 ML VIAL ONE; -LABETALOL HCL IV 5 MG/ML 20ML IV PRN; -LACTATED RINGER'S 1000ML 1,000 ML IV SCH; -LACTATED RINGER'S 1000ML 500 ML IV ONE; -LIDOCAINE HCL 2% 2 ML VIAL (20MG/ML) ONE; -MEPERIDINE HCL 25 MG/ML CARP IV PRN; -METHYLPREDNISOLONE ACETATE 80 MG/ML VIAL ONE; -MIDAZOLAM HCL 1 MG/ML 2ML VIAL ONE; -ONDANSETRON INJ 2 MG/ML 2 ML VIAL IV PRN; -ONDANSETRON INJ 2 MG/ML 2 ML VIAL ONE; -OXYC-57 PO; -PROC1TAB5 PO; -PROM50TA3 PO; -PROMETHAZINE HCL INJ 6.25 MG in SODIUM CHLORIDE 0.9% 50ML 50 ML IV PRN; -PROPOFOL IV EMULSION 10 MG/ML 20 ML VIAL IV ONE; +RANI150T85 PO; -SODIUM CHLORIDE 0.9% 1000ML 1,000 ML IV SCH; -ZNTT/150 PO
[2017-09-16 18:07] LABS: ALBUMIN 3.6 gm/dl (3.4-5.0); ALT/SGPT 29 U/L (12-78); BLOOD UREA NITROGEN 10 mg/dl (7-18); CALCIUM 9.6 mg/dl (8.5-10.1); CARBON DIOXIDE 23 mmol/L (21-32); CHOLESTEROL 242 mg/dl (0-200); CREATININE 0.85 mg/dl (0.60-1.20); GLUCOSE 77 mg/dl (70-99); POTASSIUM 4.1 mmol/L (3.5-5.1); SODIUM 137 mmol/L (136-145)
[2017-09-16 18:18] LABS: ALKALINE PHOSPHATASE 63 U/L (45-117); AST/SGOT 14 U/L (15-37); LDL CHOLESTEROL CALCULATED 133 mg/dl; TOTAL PROTEIN 8.1 gm/dl (6.4-8.2)
== END | disposition home or self-care (01) ==
LOC: C.LABBFT 11:35
PROVIDERS: ATTEND Nurse Practitioner
DX: E78.1 Pure hyperglyceridemia (principal); R63.5 Abnormal weight gain

== ENCOUNTER 2024-06-18 00:13 | Inpatient (IN) ==
--- NOTE | 2024-06-18 00:30 | Emergency Department Note ---
Impression & Plan Hydronephrosis with renal calculous obstruction, Hydronephrosis, right, Severe sepsis ED Provider Note Name: OBI CHAMPION Age: 43 Sex: Female Arrives Via: Ambulance Informant: Patient ED Provider: Alec Metcalf MD Chief Complaint: Right flank pain Impression: As per impressions above Medical Decision Makin-year-old female with a remote history of renal colic along with hyperlipidemia, bipolar, hypertension, obesity, anxiety/depression, migraines. She arrives for evaluation of severe right-sided abdominal pain. Radiates into her back associated urinary urgency without much urine output. Patient is severely uncomfortable on arrival. She is also significantly hypertensive. Given several rounds of IV narcotics with gradually improving pain. Continues to be hypertensive thus given IV labetalol. Urinalysis is somewhat concerning for infection given the positive bacteria. Her laboratory workup revealed elevated white blood cell count. A CT scan of the abdomen pelvis did reveal right hydronephrosis and probable pyelonephritis with an obstructing renal pelvis stone suspected. This is consistent and concerning for severe sepsis especially given the JESSICA. Blood cultures, lactic acid obtained. She was given 2 L normal saline bolus for resuscitation. She was empirically given IV Rocephin. I discussed the case with urology who agrees with plan for hospitalization and they will evaluate her in the morning with plan likely to take to the OR if continued discomfort. Patient to be kept NPO. Multiple repeat evaluations throughout the stay and patient is feeling a bit better. Triage/Nursing Notes reviewed by Me Sepsis resuscitation: Patient was resuscitated with 30 mg/kg IV normal saline based on ideal body weight as BMI greater than 30. Sepsis Re-Evaluation: Focused sepsis reevaluation completed by me at 3:30 AM on 06/18/2024. Patient is appearing much more comfortable. Patient denies any significant discomfort and review of systems negative at this time. Differential:Renal colic, UTI, appendicitis, diverticulitis, mesenteric ischemia, aortic pathology, infections, inflammatory bowel disease, PUD, biliary pathology, as well as other pathologies. Vital Signs: reviewed and remarkable for HTN Interventions: Morphine 8 mg IV x 2, Zofran 4 mg IV, Dilaudid 1 mg IV, normal saline bolus 2 L IV, labetalol 10 mg IV, Rocephin 2 g IV Labs:ED labs Reviewed by me and remarkable for mild elevation in creatinine, elevated white blood cell count, normal lactate Imaging:CT of the abdomen pelvis with IV contrast as per my informal interpretation reveals hydronephrosis of the right kidney. Confirmed the radiologist. EKG:Per my interpretation. Indications hypertension. Sinus bradycardia 53 bpm QTc of 388. There is no ectopy nor ischemia. Similar to EKG of 09/22/2023 Cardiac/Tele Monitoring: Cardiac Monitoring: An Order was placed for continuous cardiac monitoring. The monitor shows a rate of 60 with a normal sinus rhythm. Consults:Discussed with Dr. Sandoval of the urology service who advises hospitalization keeping n.p.o. and proceeding with antibiotics. Discussed with Dr. Trivedi of the [facility] service who evaluated patient agrees with plan to bring in and will manage further. Plan: Disposition:Hospitalization. Condition: Good History of Present Illness: 43-year-old female arrives for evaluation of right flank pain. Patient notes yesterday having some vague left flank pain and felt like she was not emptying her bladder. When she would urinate though she would feel a bit better. Today though rapid onset right-sided flank pain. Radiates to her right groin. Feels like she cannot urinate properly. No nausea, vomiting, fevers, chills, chest pain, shortness of breath, leg swelling, rashes or other concerning signs or symptoms. She has not been having any urinary burning or frequency. No trauma or injuries. No medications prior to arrival. Denies any alcohol, drug use. Past Medical History: Renal colic, bipolar, migraines, tobacco use, anxiety/depression Home Medications:See Below Allergies: Aspirin, Vyepti, seafood, Vitals:Blood Pressure: 250/130, Pulse 66, RR 20, T 37.2C, O2 99% on RA Physical Exam: GENERAL: Patient is severely uncomfortable appearing and in moderate distress. RESPIRATORY: No dyspnea. Clear to auscultation and equal bilaterally. CARDIOVASCULAR: Regular rate and rhythm.No murmur appreciated. GASTROINTESTINAL: Moderate right lateral abdominal TTP. Abdomen soft, non- tender, no peritonitis. BACK: Right CVA tenderness EXTREMITIES: Normal motion all extremities, no cyanosis, no edema. NEUROLOGIC: Alert and oriented. No focal neurologic deficits appreciated SKIN: No rash, no jaundice, no diaphoresis. PSYCH: Appropriate GCS: 15 ED Course: Times/Reassessments: Gradually improving pain. Agreeable to hospitalization Critical Care: I have personally spent 35 minutes of critical care time in the direct management of this patient. Patient with findings of severe sepsis secondary to obstructing renal stone requiring resuscitation and management of care. This was a life/limb threatening event. This 35 minutes is in excess of all separately billable procedures. Alec Metcalf MD Past Med/Surg History Problem List (Updated 06/18/24 @ 03:32 by Shayy Trivedi DO) JESSICA (acute kidney injury) Flank pain Stress incontinence Migraine with aura Eczema Tobacco use disorder (Acute 08/03/12) Bilateral breast cysts (Acute) Hyperlipidemia Bipolar disorder Mechanical low back pain Hypertension Leukocytosis Morbid obesity with BMI of 45.0-49.9, adult Chronic low back pain with right-sided sciatica Bulging of thoracic intervertebral disc Lumbar pain Lumbar facet joint syndrome Panic disorder Inflamed acrochordon Medical History History of renal calculi Slow to wake up after anesthesia GERD (gastroesophageal reflux disease) Hypertriglyceridemia Seizure disorder LAST SEIZURE 15 YRS AGO> ONLY HAD DURING PREGNANY (X3) > DOESN'T FOLLOW NEURO Surgical History H/O breast surgery (09/26/19) Needle localization, excision of bilateral breast cysts. Dr. Downing 09-26-19 S/P tubal ligation Hx of breast surgery S/P excision of ganglion cyst S/P hysterectomy S/P cholecystectomy S/P laparoscopic hysterectomy Family History Other Adopted Social History Smoking Status: Current every day smoker Tobacco Type: Cigarettes Age Started Using Tobacco: 14; packs per day: 0; Second Hand Exposure: No; Do You Dip or Chew Tobacco: No; Hx Alcohol Use: No Hx Substance Use: No Preferred Language: Yi Communication Ability: Effective Transport Aide Required: No Beliefs That Will Affect Care: None marital status: Current Living Situation: Family current occupational status: unemployed Feels Safe at Home: Yes Childhood Exposure to Second-Hand Smoke: Yes Diet: regular Diet Comment: eats dinner and snack at 9 pm caffeine: Yes Dental Care, Regularly: Yes Physical Activity Frequency: Daily Seatbelt Use: always Sunscreen Use: No Gender Identity: Female Assistive Devices: Glasses Allergies Allergies Allergy/AdvReac Type Severity Reaction Status Date / Time aspirin Allergy Severe CAN'T Verified 05/30/24 14:36 BREATH Fish Containing Products Allergy Unknown allergic Verified 06/18/24 04:28 to all SEAFOOD shellfish derived Allergy Unknown all Verified 06/18/24 04:28 seafood [id number] AdvReac Severe Throat Verified 05/30/24 14:36 [From Peggy] closing, coughing, chest pain, blood shot eyes and re Home Meds Home Medications Medication Instructions Recorded Confirmed citalopram 20 mg tablet 20 mg PO DAILY 08/31/22 06/18/24 hydroxyzine HCl 25 mg tablet 25 mg PO TID PRN Anxiety 09/03/23 06/18/24 duloxetine 20 mg capsule,delayed 10 mg PO DAILY 11/03/23 06/18/24 release clonazepam 1 mg tablet 1 mg PO TID 03/30/24 06/18/24 Previous Rx's Medication Instructions Recorded amlodipine 2.5 mg tablet 2.5 mg PO DAILY #90 tabs 09/15/22 hydrochlorothiazide 12.5 mg capsule 12.5 mg PO DAILY #90 caps 09/15/22 blood pressure kit-extra large #1 ea 07/12/23 propranolol 20 mg tablet 20 mg PO BID 30 days #60 tabs 11/10/23 famotidine 20 mg tablet 20 mg PO DAILY #90 tabs 11/24/23 fenofibrate nanocrystallized 48 mg 48 mg PO DAILY #90 tabs 11/24/23 tablet (Tricor) olmesartan 40 mg tablet 40 mg PO DAILY #90 tabs 02/23/24 rosuvastatin 40 mg tablet 40 mg PO DAILY #90 tabs 02/23/24 magnesium oxide 400 mg PO DAILY 30 days #30 tabs 02/24/24 ubrogepant 100 mg tablet (Ubrelvy) 100 mg PO ONCE PRN migraine 02/24/24 headache 30 days #16 tabs fremanezumab-vfrm 225 mg/1.5 mL 225 mg (1.5 mL) subcut .[id number] 03/14/24 subcutaneous auto-injector (Ajovy) days #1.5 mL oxybutynin chloride 10 mg 10 mg PO DAILY #90 tabs 05/30/24 tablet,extended release 24 hr Results & Data (ED) Vital Signs Vital Signs - 24 hr 06/18/24 00:22 06/18/24 00:22 06/18/24 00:22 Temperature 37.2 C Temperature Source Oral Pulse Rate 64 66 Pulse Rate [Apical] Pulse Rate from SpO2 Sensor Respiratory Rate 16 Respiratory Effort / Characteristics Non-Labored Respiratory Depth Normal Respiratory Pattern Regular Blood Pressure 251/126 H 251/126 H Blood Pressure [Right Arm] Blood Pressure Mean 167 188 Blood Pressure Mean [Right Arm] Pulse Oximetry 96 Oxygen Delivery Method Room Air Oxygen Flow Rate Sepsis Recent Fever Within 48 Hours No Sepsis New/Unexplained Change in Mental Status N/A Sepsis Action Taken by Nursing No Action Required 06/18/24 00:24 06/18/24 00:27 06/18/24 00:29 Temperature Temperature Source Pulse Rate 78 66 Pulse Rate [Apical] Pulse Rate from SpO2 Sensor 75 65 Respiratory Rate 27 H 29 H Respiratory Effort / Characteristics Respiratory Depth Respiratory Pattern Blood Pressure 234/114 H Blood Pressure [Right Arm] Blood Pressure Mean 171 Blood Pressure Mean [Right Arm] Pulse Oximetry 95 95 Oxygen Delivery Method Oxygen Flow Rate Sepsis Recent Fever Within 48 Hours Sepsis New/Unexplained Change in Mental Status Sepsis Action Taken by Nursing 06/18/24 00:30 06/18/24 00:39 06/18/24 01:18 Temperature Temperature Source Pulse Rate 60 Pulse Rate [Apical] 95 H Pulse Rate from SpO2 Sensor 60 Respiratory Rate 22 27 H Respiratory Effort / Characteristics Non-Labored Spontaneous Respiratory Depth Normal Respiratory Pattern Regular Blood Pressure 253/116 H Blood Pressure [Right Arm] Blood Pressure Mean 189 Blood Pressure Mean [Right Arm] Pulse Oximetry 96 91 Oxygen Delivery Method Room Air Oxygen Flow Rate Sepsis Recent Fever Within 48 Hours Sepsis New/Unexplained Change in Mental Status Sepsis Action Taken by Nursing 06/18/24 01:21 06/18/24 01:22 06/18/24 01:24 Temperature Temperature Source Pulse Rate 64 Pulse Rate [Apical] 74 Pulse Rate from SpO2 Sensor 61 Respiratory Rate 19 22 Respiratory Effort / Characteristics Non-Labored Spontaneous Respiratory Depth Normal Respiratory Pattern Blood Pressure 235/126 H Blood Pressure [Right Arm] 235/116 H Blood Pressure Mean 152 Blood Pressure Mean [Right Arm] 155 Pulse Oximetry 91 91 Oxygen Delivery Method Room Air Oxygen Flow Rate Sepsis Recent Fever Within 48 Hours Sepsis New/Unexplained Change in Mental Status Sepsis Action Taken by Nursing 06/18/24 01:27 06/18/24 01:30 06/18/24 01:45 Temperature Temperature Source Pulse Rate 54 L 75 Pulse Rate [Apical] Pulse Rate from SpO2 Sensor 54 L 75 Respiratory Rate 22 23 Respiratory Effort / Characteristics Respiratory Depth Respiratory Pattern Blood Pressure 225/111 H Blood Pressure [Right Arm] Blood Pressure Mean 146 Blood Pressure Mean [Right Arm] Pulse Oximetry 92 95 Oxygen Delivery Method Oxygen Flow Rate Sepsis Recent Fever Within 48 Hours Sepsis New/Unexplained Change in Mental Status Sepsis Action Taken by Nursing 06/18/24 01:51 06/18/24 01:54 06/18/24 01:54 Temperature Temperature Source Pulse Rate 72 74 79 Pulse Rate [Apical] Pulse Rate from SpO2 Sensor 72 79 Respiratory Rate 24 21 Respiratory Effort / Characteristics Respiratory Depth Respiratory Pattern Blood Pressure 225/111 H Blood Pressure [Right Arm] Blood Pressure Mean Blood Pressure Mean [Right Arm] Pulse Oximetry 93 95 Oxygen Delivery Method Oxygen Flow Rate Sepsis Recent Fever Within 48 Hours Sepsis New/Unexplained Change in Mental Status Sepsis Action Taken by Nursing 06/18/24 01:59 06/18/24 02:00 06/18/24 02:09 Temperature Temperature Source Pulse Rate 62 62 Pulse Rate [Apical] Pulse Rate from SpO2 Sensor 62 Respiratory Rate 19 Respiratory Effort / Characteristics Respiratory Depth Respiratory Pattern Blood Pressure 188/95 H 182/96 H Blood Pressure [Right Arm] Blood Pressure Mean 123 Blood Pressure Mean [Right Arm] Pulse Oximetry 90 Oxygen Delivery Method Oxygen Flow Rate Sepsis Recent Fever Within 48 Hours Sepsis New/Unexplained Change in Mental Status Sepsis Action Taken by Nursing 06/18/24 02:09 06/18/24 02:09 06/18/24 02:18 Temperature Temperature Source Pulse Rate 62 69 Pulse Rate [Apical] Pulse Rate from SpO2 Sensor 61 Respiratory Rate 24 21 Respiratory Effort / Characteristics Respiratory Depth Respiratory Pattern Blood Pressure 182/96 H Blood Pressure [Right Arm] Blood Pressure Mean 110 Blood Pressure Mean [Right Arm] Pulse Oximetry 92 Oxygen Delivery Method Oxygen Flow Rate Sepsis Recent Fever Within 48 Hours Sepsis New/Unexplained Change in Mental Status Sepsis Action Taken by Nursing 06/18/24 02:32 06/18/24 02:36 06/18/24 03:00 Temperature Temperature Source Pulse Rate 70 61 Pulse Rate [Apical] Pulse Rate from SpO2 Sensor 69 59 L Respiratory Rate 24 21 Respiratory Effort / Characteristics Respiratory Depth Respiratory Pattern Blood Pressure 156/88 H 172/97 H Blood Pressure [Right Arm] Blood Pressure Mean 112 108 Blood Pressure Mean [Right Arm] Pulse Oximetry 94 93 Oxygen Delivery Method Nasal Cannula Oxygen Flow Rate 2 Sepsis Recent Fever Within 48 Hours Sepsis New/Unexplained Change in Mental Status Sepsis Action Taken by Nursing Laboratory Data 06/18/24 00:28 06/18/24 00:28 Lab Results 06/18/24 06/18/24 06/18/24 Range/Units 00:28 00:34 02:27 WBC 20.18 H (4.8-10.8) K/ul RBC 4.79 (4.20-5.40) M/uL Hgb 15.0 (12.0-16.0) g/dl POC Hgb 15.3 (12.0-16.0) g/dl Hct 43.2 (37.0-47.0) % POC Hct 45 (37-47) % MCV 90.2 (80.0-100.0) fL MCH 31.3 (25.0-34.0) pg MCHC 34.7 (32.0-36.0) g/dL RDW Std Deviation 43.8 (36.4-46.3) fL RDW Coeff of Dharmesh 13.2 (11.5-14.5) % Plt Count 389 (130-400) K/uL MPV 9.7 (9.4-12.4) fL Immature Gran % (Auto) 0.6 % Neut % (Auto) 76.1 % Lymph % (Auto) 16.9 % Ford % (Auto) 5.6 % Eos % (Auto) 0.4 % Baso % (Auto) 0.4 % Neut # (Auto) 15.36 H (1.40-6.50) K/uL Lymph # (Auto) 3.41 H (1.20-3.40) K/uL Ford # (Auto) 1.12 H (0.11-0.59) K/uL Eos # (Auto) 0.09 (0.00-0.50) K/uL Baso # (Auto) 0.08 (0.00-0.20) K/uL Immature Gran # (Auto) 0.12 (0.01-0.20) K/uL POC Sodium 139 (135-144) mmol/L Sodium 128 L (136-145) mmol/L POC Potassium 4.1 (3.3-5.0) mmol/L Potassium 3.8 (3.5-5.1) mmol/L POC Chloride 105 (101-112) mmol/L Chloride 96 L (98-107) mmol/L Carbon Dioxide 23 (21-32) mmol/L POC Total CO2 22 L (24-31) mmol/L Anion Gap 9 (3-11) POC Anion Gap 17.0 (16-25) mmol/L POC BUN 18 (7-18) mg/dl BUN 17 (6-23) mg/dl Creatinine 1.25 H (0.6-1.2) mg/dl POC Creatinine 1.3 (0.6-1.3) mg/dl Est Cr Clr Drug Dosing 71.3 ml/min eGFR 54.17 BUN/Creatinine Ratio 13.6 (10-20) Glucose 119 H (70-99(Fasting)) mg/dl POC Glucose (other) 121 H (70-99) mg/dl Lactate 1.2 (0.4-2.0) mmol/L Calcium 10.3 (8.6-10.3) mg/dl POC Ioniz Calcium Abel 1.30 (1.12-1.32) mmol/l Total Bilirubin 0.3 (0.2-1.0) mg/dl Direct Bilirubin 0.1 (0-0.2) mg/dl AST 27 (13-39) U/L ALT 19 (7-52) U/L Alkaline Phosphatase 66 (34-104) U/L Total Protein 7.6 (6.0-8.3) gm/dl Albumin 4.2 (3.4-5.0) gm/dl Lipase 14 (11-82) U/L Procalcitonin 0.09 (0-0.5) ng/ml Urine Color Yellow Urine Appearance Cloudy A (Clear) Urine pH 5.0 (4.5-7.5) Ur Specific [place] 1.023 (1.000-1.030) Urine Protein Negative (Negative) Urine Glucose (UA) Negative (Negative) Urine Ketones Negative (Negative) Urine Blood 2+ H (Negative) Urine Nitrite Negative (Negative) Urine Bilirubin Negative (Negative) Urine Urobilinogen Negative (Negative) Ur Leukocyte Esterase Negative (Negative) Urine WBC (Auto) 0-5 (0-5) /hpf Urine RBC (Auto) 3-5 H (0-2) /hpf U Hyaline Cast (Auto) 0-2 (0-2) /lpf U Epithel Cells (Auto) 6-10 H (0-2) /hpf Urine Bacteria (Auto) 2+ H (None Seen) Urine Test Negative (Negative) Urine Opiates Screen Pos H (Neg) Ur Methadone, Qual Neg (Neg) Urine Fentanyl Screen Neg (Neg) Urine Barbiturates Neg (Neg) Ur Phencyclidine (PCP) Neg (Neg) U Amphetamin/Meth Scrn Neg (Neg) MDMA (Ecstasy) Screen Neg (Neg) U Benzodiazepines Scrn Neg (Neg) Ur Cocaine Metabolite Neg (Neg) U Marijuana (THC) Screen Neg (Neg) Administered Medications Hydromorphone HCl (Hydromorphone Inj 0.5 Mg/0.5 Ml Syr) 0.5 mg IV Q3H PRN PRN Reason: Pain (6,7,8,9,10) Stop: 07/02/24 04:24 Last Admin: 06/18/24 05:04 Dose: 0.5 mg Documented By: LIONEL Lactated Ringer's (Lr) 1,000 mls @ 125 mls/hr IV .Q8H FREYA Stop: 06/19/24 04:24 Last Admin: 06/18/24 05:03 Dose: 125 mls/hr Documented By: LIONEL Discontinued Medications Hydromorphone HCl (Hydromorphone Inj 1 Mg/Ml Syringe) 1 mg IV NOW STA Stop: 06/18/24 02:31 Last Admin: 06/18/24 02:40 Dose: 1 mg Documented By: JACQUELINE Ceftriaxone Sodium (Rocephin) 2,000 mg in 50 mls @ 100 mls/hr IV NOW STA Stop: 06/18/24 02:45 Last Infusion: 06/18/24 03:19 Dose: Infused Documented By: Admin: 06/18/24 02:36 Dose: 100 mls/hr Documented By: JACQUELINE Sodium Chloride (Nss) 1,000 mls @ 999 mls/hr IV .Q1H1M ONE Stop: 06/18/24 03:24 Last Infusion: 06/18/24 03:35 Dose: Infused Documented By: Admin: 06/18/24 02:33 Dose: 999 mls/hr Documented By: JACQUELINE Sodium Chloride (Nss) 1,000 mls @ 999 mls/hr IV .Q1H1M ONE Stop: 06/18/24 03:30 Last Infusion: 06/18/24 03:55 Dose: Infused Documented By: Admin: 06/18/24 02:39 Dose: 999 mls/hr Documented By: JACQUELINE Ioversol (Optiray 320 100ml) 94 ml IV ONCE ONE Stop: 06/18/24 00:47 Last Admin: 06/18/24 00:46 Dose: 94 ml Documented By: HYUN Labetalol HCl (Labetalol Hcl Iv 5 Mg/Ml 20ml) 10 mg IV NOW STA Stop: 06/18/24 01:25 Last Admin: 06/18/24 01:54 Dose: 10 mg Documented By: JACQUELINE Morphine Sulfate (Morphine Sulfate 10 Mg/Ml Carp/Vial) 8 mg IV NOW STA Stop: 06/18/24 00:26 Last Admin: 06/18/24 00:31 Dose: 8 mg Documented By: JACQUELINE Morphine Sulfate (Morphine Sulfate 10 Mg/Ml Carp/Vial) 8 mg IV NOW STA Stop: 06/18/24 01:10 Last Admin: 06/18/24 01:17 Dose: 8 mg Documented By: JACQUELINE Ondansetron HCl (Ondansetron Inj 2 Mg/Ml 2 Ml Vial) 4 mg IV NOW STA Stop: 06/18/24 00:26 Last Admin: 06/18/24 00:31 Dose: 4 mg Documented By: JACQUELINE Tamsulosin HCl (Tamsulosin Hcl 0.4 Mg Cap) 0.4 mg PO NOW ONE Stop: 06/18/24 04:26 Last Admin: 06/18/24 05:04 Dose: 0.4 mg Documented By: LIONEL Imaging Data Radiologist's Impression: Abdomen/Pelvis CT 06/18/24 00:25 EXAM: CT abd pelvis IV con only CLINICAL HISTORY: RLQ pain and flank pain, decreased urine output and nausea. pt states she had similar pain yesterday that improved after she urinated. pt states hx of kidney stones pt denies preg 94 ml opti 320 PW/GS TECHNIQUE: Contiguous axial images were obtained from the level of the diaphragm to the pubic symphysis with intravenous contrast. Coronal and sagittal reconstructions were likewise performed and indicated to increase the sensitivity for detecting clinically relevant pathology. If IV contrast material had not been administered, the likelihood of detecting abnormalities relevant to the patient's condition would have been substantially decreased. CT scan was performed according to ALARA (as low as reasonable achievable). 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 The liver is enlarged in size measures 23 mm in cranio-caudal length and shows normal attenuation. No focal liver lesions are seen. There is no intra or extrahepatic biliary ductal dilatation. Hepatic vasculature is patent. The gallbladder is not seen with cholecystectomy clips in GB fossa. The spleen, pancreas, and adrenal glands are unremarkable. Right kidney appears bulky with mild dilatation of pelvicalyceal system and proximal ureter with mild ghanshyam-ureteric fat stranding. Tiny radiodense focus seen at right vesicoureteric junction. Left kidney is normal in size and attenuation. There is no hydronephrosis or perinephric fat stranding. No renal calculi or renal masses are identified. Bilateral simple renal cysts largest measuring 64x66 mm in lower pole of right kidney. The ureters are normal in caliber and no ureteral calculi are seen. The bladder is normal in contour. Pelvic viscera are unremarkable. No focal or diffuse bowel wall thickening or evidence of bowel obstruction is identified. The appendix is visualized in the right lower quadrant and appears within normal limits. 23x21 mm unilocular cystic lesion in left adnexa. Uterus is not visualised. Abdominal and pelvic vasculature is patent. No adenopathy or fluid collections are seen. No aggressive appearing osseous lesions are identified. IMPRESSION: 1. Right kidney appears bulky with mild dilatation of pelvicalyceal system and proximal ureter with mild ghanshyam-ureteric fat stranding. Tiny radiodense focus seen at right vesicoureteric junction-- suggestive of right vesicoureteric junction calculus causing obstructive changes. Stable size of calculus as compared to prior study. 2. Hepatomegaly. 3. Bilateral simple renal cysts. 4. Status post cholecystectomy - unchanged from previous study. 5. Uterus is not visualised - please correlate with post-operative history -new finding compared to previous study. 6. 23x21 mm unilocular cystic lesion in left adnexa - interval reduction in size compared to previous study. Electronically signed by Darwin Fairbanks 06-18-2024 02:05 AM Discharge Plan Visit Data Chief Complaint: Flank Pain Stated Complaint: R Flank Pain ED Provider: Alec Metcalf Discharge Problem: Hydronephrosis with renal calculous obstruction, Hydronephrosis, right, Severe sepsis Patient Disposition: Admitted As Inpatient Discharge Instructions Interventions: ED Discharge Assessment Last Done: 06/18/24 04:07
[2024-06-18] MEDS: ONDANSETRON INJ 2 MG/ML 2 ML VIAL IV STA (00:31)
[2024-06-18] MEDS: MoRPHine SULFATE 10 MG/ML CARP/VIAL IV STA ×2 (00:31→01:17)
[2024-06-18 00:42] LABS: Basophils # (auto) 0.08 K/uL (0.00-0.20); Basophils % (auto) 0.4 %; Eosinophils # (auto) 0.09 K/uL (0.00-0.50); Eosinophils % (auto) 0.4 %; Hematocrit (blood only) 43.2 % (37.0-47.0); Immature Granulocytes # (auto) 0.12 K/uL (0.01-0.20); Immature Granulocytes % (auto) 0.6 %; Lymphocytes # (auto) 3.41 K/uL (1.20-3.40); Lymphocytes % (auto) 16.9 %; Mean Corpuscular Hemoglobin 31.3 pg (25.0-34.0); Mean Corpuscular Hgb Conc 34.7 g/dL (32.0-36.0); Mean Corpuscular Volume 90.2 fL (80.0-100.0); Mean Platelet Volume 9.7 fL (9.4-12.4); Monocytes # (auto) 1.12 K/uL (0.11-0.59); Monocytes % (auto) 5.6 %; Neutrophils # (auto) 15.36 K/uL (1.40-6.50); Neutrophils % (auto) 76.1 %; Platelet Count 389 K/uL (130-400); RDW Coefficient of Variation 13.2 % (11.5-14.5); RDW Standard Deviation 43.8 fL (36.4-46.3); Red Blood Count 4.79 M/uL (4.20-5.40); White Blood Count 20.18 K/ul (4.8-10.8)
[2024-06-18] MEDS: OPTIRAY 320 100ml IV ONE (00:46)
[2024-06-18 00:47] LABS: Pregnancy Test, Urine Negative (Negative)
[2024-06-18 00:47] LABS: iSTAT Creatinine 1.3 mg/dl (0.6-1.3); iSTAT Hemoglobin 15.3 g/dl (12.0-16.0); iSTAT Ionized Calcium 1.3 mmol/l (1.12-1.32); iSTAT Potassium 4.1 mmol/L (3.3-5.0)
[2024-06-18 00:48] LABS: Appearance Urine Cloudy (Clear); Bacteria Urine Automated 2+ (None Seen); Bilirubin Urine Negative (Negative); Blood Urine 2+ (Negative); Cast Urine Automated 0-2 /lpf (0-2); Color Urine Yellow; Glucose Urine UA Negative (Negative); Ketones Urine Negative (Negative); Leukocyte Esterase Urine Negative (Negative); Nitrite Urine Negative (Negative); Protein Urine Negative (Negative); Specific Gravity Urine 1.023 (1.000-1.030); Urobilinogen Urine Negative (Negative); WBC Urine Automated 0-5 /hpf (0-5)
[2024-06-18 01:01] LABS: Albumin Level 4.2 gm/dl (3.4-5.0); BUN Creatinine Ratio 13.6 (10-20); Bilirubin Direct 0.1 mg/dl (0-0.2); Bilirubin,Total 0.3 mg/dl (0.2-1.0); Calcium 10.3 mg/dl (8.6-10.3); Creatinine Clr Calc Pharmacy 71.3 ml/min; Potassium 3.8 mmol/L (3.5-5.1); Total Protein 7.6 gm/dl (6.0-8.3)
[2024-06-18] MEDS: LABETALOL HCL IV 5 MG/ML 20ML IV STA (01:54)
--- NOTE | 2024-06-18 02:05 | CT Scan Report ---
EXAM: CT abd pelvis IV con only CLINICAL HISTORY: RLQ pain and flank pain, decreased urine output and nausea. pt states she had similar pain yesterday that improved after she urinated. pt states hx of kidney stones pt denies preg 94 ml opti 320 PW/GS TECHNIQUE: Contiguous axial images were obtained from the level of the diaphragm to the pubic symphysis with intravenous contrast. Coronal and sagittal reconstructions were likewise performed and indicated to increase the sensitivity for detecting clinically relevant pathology. If IV contrast material had not been administered, the likelihood of detecting abnormalities relevant to the patient's condition would have been substantially decreased. CT scan was performed according to ALARA (as low as reasonable achievable). 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 The liver is enlarged in size measures 23 mm in cranio-caudal length and shows normal attenuation. No focal liver lesions are seen. There is no intra or extrahepatic biliary ductal dilatation. Hepatic vasculature is patent. The gallbladder is not seen with cholecystectomy clips in GB fossa. The spleen, pancreas, and adrenal glands are unremarkable. Right kidney appears bulky with mild dilatation of pelvicalyceal system and proximal ureter with mild ghanshyam-ureteric fat stranding. Tiny radiodense focus seen at right vesicoureteric junction. Left kidney is normal in size and attenuation. There is no hydronephrosis or perinephric fat stranding. No renal calculi or renal masses are identified. Bilateral simple renal cysts largest measuring 64x66 mm in lower pole of right kidney. The ureters are normal in caliber and no ureteral calculi are seen. The bladder is normal in contour. Pelvic viscera are unremarkable. No focal or diffuse bowel wall thickening or evidence of bowel obstruction is identified. The appendix is visualized in the right lower quadrant and appears within normal limits. 23x21 mm unilocular cystic lesion in left adnexa. Uterus is not visualised. Abdominal and pelvic vasculature is patent. No adenopathy or fluid collections are seen. No aggressive appearing osseous lesions are identified. IMPRESSION: 1. Right kidney appears bulky with mild dilatation of pelvicalyceal system and proximal ureter with mild ghanshyam-ureteric fat stranding. Tiny radiodense focus seen at right vesicoureteric junction-- suggestive of right vesicoureteric junction calculus causing obstructive changes. Stable size of calculus as compared to prior study. 2. Hepatomegaly. 3. Bilateral simple renal cysts. 4. Status post cholecystectomy - unchanged from previous study. 5. Uterus is not visualised - please correlate with post-operative history -new finding compared to previous study. 6. 23x21 mm unilocular cystic lesion in left adnexa - interval reduction in size compared to previous study. Electronically signed by Darwin Fairbanks 06-18-2024 02:05 AM
[2024-06-18 02:14] LABS: Amphetamines+Metham, Urine Neg (Neg); Barbiturates, Urine Neg (Neg); Benzodiazepine, Urine Neg (Neg); Cocaine, Urine Neg (Neg); Fentanyl, Urine Neg (Neg); MDMA (Ecstacy), Urine Neg (Neg); Marijuana, Urine Neg (Neg); Methadone, Urine Neg (Neg); Opiate, Urine Pos (Neg); Phencyclidine, Urine Neg (Neg)
[2024-06-18] MEDS: SODIUM CHLORIDE 0.9% 1,000 ML IV ONE ×2 (02:33→02:39)
[2024-06-18] MEDS: cefTRIAXone SODIUM 2,000 MG/50 ML BAG IV STA (02:36)
[2024-06-18] MEDS: HYDROmorphone INJ 1 MG/ML SYRINGE IV STA (02:40)
--- NOTE | 2024-06-18 03:04 | History & Physical Report ---
Date of Service June 18, 2024 Assessment & Plan (1) Flank pain: Plan: 43yo female with ongoing right flank pain. Found to have tiny radiodense focus at the right vesicoureteric junction suggesetive of calculus. Patient with UA suggestive of infection Cr elevated at 1.25 (baseline 0.8) -Admit to Medical with telemetry -Keep NPO -LR at 125mL/hr x 24 hours ordered -Dilaudid PRN pain -Zofran PRN nausea -Ceftriaxone 2gm IV daily -Flomax 0.4mg po now -Urology consultation appreciated (2) JESSICA (acute kidney injury): Plan: Cr=1.25, increased from baseline of 0.8 -LR at 125mL/hr x 24 hours ordered -Repeat labs in AM -Avoid nephrotoxic agents -Urology consultation for stone management (3) Hypertension: Plan: Markedly elevated blood pressure on arrival. Improved now with pain control and Labetalol 10mg IV although still hypertensive -Continue Amlodipine 2.5mg po q AM -Continue Propranolol -Hold Olmesartan for now due to JESSICA and upcoming procedure Plan Bipolar disorder -Continue Clonazepam -Continue Celexa -Continue Cymbalta -Continue Hydroxyzine GERD -Continue Pepcid Hypertriglyceridemia -Continue Fenofibrate -Continue Crestor History of Present Illness Chief Complaint: flank pain Primary Care Provider: DELILAH Rouseay is a 43yo female presenting with ongoing flank pain since 06/16/24. Patient initially had left sided flank pain which has resolved and now has right sided flank pain with dysuria. Nausea as well. Similar to prior episodes of renal stones although more severe. In the ER patient hypertensive on arrival which responded to IV Labetalol Pain improved with IV Dilaudid ER Course: MOrphine 8mg x 2 doses Zofran 4mg IV Labetalol 10mg IV NSS x 3L Ceftriaxone 2gm Dilaudid x 1mg Allergies Allergy/AdvReac Type Severity Reaction Status Date / Time aspirin Allergy Severe CAN'T Verified 05/30/24 14:36 BREATH eptinezumab-jjmr AdvReac Severe Throat Verified 05/30/24 14:36 [From Vyepti] closing, coughing, chest pain, blood shot eyes and re seafood Allergy Severe swelling, Uncoded 05/30/24 14:36 hives, SOB Food Allergy Unknown ALL Uncoded 05/30/24 14:36 SEAFOOD-SWELLING SOB HIVES WITH EATING OR SMELLING Home Medications Medication Instructions Recorded Confirmed Type citalopram 20 mg tablet 20 mg PO DAILY 08/31/22 06/18/24 History amlodipine 2.5 mg tablet 2.5 mg PO DAILY #90 tabs 09/15/22 06/18/24 Rx hydrochlorothiazide 12.5 mg capsule 12.5 mg PO DAILY #90 caps 09/15/22 06/18/24 Rx blood pressure kit-extra large #1 ea 07/12/23 06/18/24 Rx hydroxyzine HCl 25 mg tablet 25 mg PO TID PRN Anxiety 09/03/23 06/18/24 History duloxetine 20 mg capsule,delayed 10 mg PO DAILY 11/03/23 06/18/24 History release propranolol 20 mg tablet 20 mg PO BID 30 days #60 tabs 11/10/23 06/18/24 Rx famotidine 20 mg tablet 20 mg PO DAILY #90 tabs 11/24/23 06/18/24 Rx fenofibrate nanocrystallized 48 mg 48 mg PO DAILY #90 tabs 11/24/23 06/18/24 Rx tablet (Tricor) olmesartan 40 mg tablet 40 mg PO DAILY #90 tabs 02/23/24 06/18/24 Rx rosuvastatin 40 mg tablet 40 mg PO DAILY #90 tabs 02/23/24 06/18/24 Rx magnesium oxide 400 mg PO DAILY 30 days #30 tabs 02/24/24 06/18/24 Rx ubrogepant 100 mg tablet (Ubrelvy) 100 mg PO ONCE PRN migraine 02/24/24 06/18/24 Rx headache 30 days #16 tabs fremanezumab-vfrm 225 mg/1.5 mL 225 mg (1.5 mL) subcut .[id number] 03/14/24 06/18/24 Rx subcutaneous auto-injector (Ajovy) days #1.5 mL clonazepam 1 mg tablet 1 mg PO TID 03/30/24 06/18/24 History oxybutynin chloride 10 mg 10 mg PO DAILY #90 tabs 05/30/24 06/18/24 Rx tablet,extended release 24 hr Past Med/Surg History Problem List (Updated 06/18/24 @ 03:32 by Shayy Trivedi DO) JESSICA (acute kidney injury) Flank pain Stress incontinence Migraine with aura Eczema Tobacco use disorder (Acute 08/03/12) Bilateral breast cysts (Acute) Hyperlipidemia Bipolar disorder Mechanical low back pain Hypertension Leukocytosis Morbid obesity with BMI of 45.0-49.9, adult Chronic low back pain with right-sided sciatica Bulging of thoracic intervertebral disc Lumbar pain Lumbar facet joint syndrome Panic disorder Inflamed acrochordon Medical History History of renal calculi Slow to wake up after anesthesia GERD (gastroesophageal reflux disease) Hypertriglyceridemia Seizure disorder LAST SEIZURE 15 YRS AGO> ONLY HAD DURING PREGNANY (X3) > DOESN'T FOLLOW NEURO Surgical History H/O breast surgery (09/26/19) Needle localization, excision of bilateral breast cysts. Dr. Downing 09-26-19 S/P tubal ligation Hx of breast surgery S/P excision of ganglion cyst S/P hysterectomy S/P cholecystectomy S/P laparoscopic hysterectomy Family History Other Adopted Social History Smoking Status: Current every day smoker Tobacco Type: Cigarettes Age Started Using Tobacco: 14; packs per day: 0; Second Hand Exposure: No; Do You Dip or Chew Tobacco: No; Hx Alcohol Use: No Hx Substance Use: No Preferred Language: Comoran Communication Ability: Effective Telemarketing Representative Required: No Beliefs That Will Affect Care: None marital status: Current Living Situation: Family current occupational status: unemployed Feels Safe at Home: Yes Childhood Exposure to Second-Hand Smoke: Yes Diet: regular Diet Comment: eats dinner and snack at 9 pm caffeine: Yes Dental Care, Regularly: Yes Physical Activity Frequency: Daily Seatbelt Use: always Sunscreen Use: No Gender Identity: Female Assistive Devices: Glasses Review of Systems Review of Systems: All systems reviewed & are unremarkable except as noted in HPI & below Physical Exam Physical Exam: General: patient resting comfortably, NAD, non-toxic in appearance, AA&O x 4 Skin: warm, dry, intact, no rashes or lesions HEENT: NC/AT, PERRL, EOMI, anicteric sclera, conjunctiva without injection, external ear normal to inspection and nontender, nares patent, moist mucus membranes, dentition intact, no oropharyngeal lesions, neck supple, trachea midline, no LAD, no thyromegaly, no JVD Heart: +S1/S2, regular, no m/r/g Lungs: equal air entry bilaterally, no rales/rhonchi/wheezes Abd: +BS, soft, NT/ND, no masses/organomegaly/ascites Ext: warm, 2+ pulses in UE/LE bilaterally, no clubbing/cyanosis or edema Neuro: nonfocal, patient AA&O x 4, speech intact, no facial droop, moving all extremities on command with equal strength 5/5 Results & Data Results & Data Vital Signs (Past 12 Hours) Vital Signs Temp Pulse Pulse Resp BP BP Pulse Ox 06/18/24 02:36 70 24 94 06/18/24 02:32 156/88 H 06/18/24 02:18 69 21 06/18/24 02:09 182/96 H 06/18/24 02:09 62 24 92 06/18/24 02:09 62 182/96 H 06/18/24 02:00 62 19 90 06/18/24 01:59 188/95 H 06/18/24 01:54 79 21 95 06/18/24 01:54 74 225/111 H 06/18/24 01:51 72 24 93 06/18/24 01:45 75 23 95 06/18/24 01:30 225/111 H 06/18/24 01:27 54 L 22 92 06/18/24 01:24 64 22 91 06/18/24 01:22 235/126 H 06/18/24 01:21 74 19 235/116 H 91 06/18/24 01:18 60 27 H 91 06/18/24 00:39 95 H 22 96 06/18/24 00:30 253/116 H 06/18/24 00:29 234/114 H 06/18/24 00:27 66 29 H 95 06/18/24 00:24 78 27 H 95 06/18/24 00:22 251/126 H 06/18/24 00:22 66 06/18/24 00:22 37.2 C 64 16 251/126 H 96 O2 Del Method 06/18/24 02:36 06/18/24 02:32 06/18/24 02:18 06/18/24 02:09 06/18/24 02:09 06/18/24 02:09 06/18/24 02:00 06/18/24 01:59 06/18/24 01:54 06/18/24 01:54 06/18/24 01:51 06/18/24 01:45 06/18/24 01:30 06/18/24 01:27 06/18/24 01:24 06/18/24 01:22 06/18/24 01:21 Room Air 06/18/24 01:18 06/18/24 00:39 Room Air 06/18/24 00:30 06/18/24 00:29 06/18/24 00:27 06/18/24 00:24 06/18/24 00:22 06/18/24 00:22 06/18/24 00:22 Room Air Laboratory Results Laboratory Results WBC 20.18 K/ul (4.8-10.8) H 06/18/24 00:28 RBC 4.79 M/uL (4.20-5.40) 06/18/24 00:28 Hgb 15.0 g/dl (12.0-16.0) 06/18/24 00:28 POC Hgb 15.3 g/dl (12.0-16.0) 06/18/24 00:34 Hct 43.2 % (37.0-47.0) 06/18/24 00:28 POC Hct 45 % (37-47) 06/18/24 00:34 MCV 90.2 fL (80.0-100.0) 06/18/24 00:28 MCH 31.3 pg (25.0-34.0) 06/18/24 00:28 MCHC 34.7 g/dL (32.0-36.0) 06/18/24 00:28 RDW Std Deviation 43.8 fL (36.4-46.3) 06/18/24 00:28 RDW Coeff of Dharmesh 13.2 % (11.5-14.5) 06/18/24 00:28 Plt Count 389 K/uL (130-400) 06/18/24 00:28 MPV 9.7 fL (9.4-12.4) 06/18/24 00: Immature Gran % (Auto) 0.6 % 06/18/24: Neut % (Auto) 76.1 % 06/18/24 00: Lymph % (Auto) 16.9 % 06/18/24: Wolfe % (Auto) 5.6 % 06/18/24: Eos % (Auto) 0.4 % 06/18/24 00: Baso % (Auto) 0.4 % 06/18/24: Neut # (Auto) 15.36 K/uL (1.40-6.50) H 06/18/24: Lymph # (Auto) 3.41 K/uL (1.20-3.40) H 06/18/24 00: Wolfe # (Auto) 1.12 K/uL (0.11-0.59) H 06/18/24: Eos # (Auto) 0.09 K/uL (0.00-0.50) 06/18/24 00: Baso # (Auto) 0.08 K/uL (0.00-0.20) 06/18/24 00: Immature Gran # (Auto) 0.12 K/uL (0.01-0.20) 06/18/24 00:28 POC Sodium 139 mmol/L (135-144) 06/18/24 00:34 Sodium 128 mmol/L (136-145) L 06/18/24: POC Potassium 4.1 mmol/L (3.3-5.0) 06/18/24 00:34 Potassium 3.8 mmol/L (3.5-5.1) 06/18/24 00:28 POC Chloride 105 mmol/L (101-112) 06/18/24 00:34 Chloride 96 mmol/L (98-107) L 06/18/24:28 Carbon Dioxide 23 mmol/L (21-32) 06/18/24 00: POC Total CO2 22 mmol/L (24-31) L 06/18/24 00:34 Anion Gap 9 (3-11) 06/18/24: POC Anion Gap 17.0 mmol/L (16-25) 06/18/24 00:34 POC BUN 18 mg/dl (7-18) 06/18/24 00:34 BUN 17 mg/dl (6-23) 06/18/24 00:28 Creatinine 1.25 mg/dl (0.6-1.2) H 06/18/24 00:28 POC Creatinine 1.3 mg/dl (0.6-1.3) 06/18/24:34 Est Cr Clr Drug Dosing 71.3 ml/min 06/18/24: eGFR 54.17 06/18/24: BUN/Creatinine Ratio 13.6 (10-20) 06/18/24: Glucose 119 mg/dl (70-99(Fasting)) H 06/18/24: POC Glucose (other) 121 mg/dl (70-99) H 06/18/24 00: Lactate 1.2 mmol/L (0.4-2.0) 06/18/24 02:27 Calcium 10.3 mg/dl (8.6-10.3) 06/18/24 00: POC Ioniz Calcium Abel 1.30 mmol/l (1.12-1.32) 06/18/24 00:34 Total Bilirubin 0.3 mg/dl (0.2-1.0) 06/18/24: Direct Bilirubin 0.1 mg/dl (0-0.2) 06/18/24: AST 27 U/L (13-39) 06/18/24: ALT 19 U/L (7-52) 06/18/24: Alkaline Phosphatase 66 U/L (34-104) 06/18/24 00:28 Total Protein 7.6 gm/dl (6.0-8.3) 06/18/24: Albumin 4.2 gm/dl (3.4-5.0) 06/18/24: Lipase 14 U/L (11-82) 06/18/24: Procalcitonin 0.09 ng/ml (0-0.5) 06/18/24: Urine Color Yellow 06/18/24: Urine Appearance Cloudy (Clear) A 06/18/24: Urine pH 5.0 (4.5-7.5) 06/18/24 00:28 Ur Specific [place] 1.023 (1.000-1.030) 06/18/24 00:28 Urine Protein Negative (Negative) 06/18/24 00:28 Urine Glucose (UA) Negative (Negative) 06/18/24 00:28 Urine Ketones Negative (Negative) 06/18/24 00:28 Urine Blood 2+ (Negative) H 06/18/24 00:28 Urine Nitrite Negative (Negative) 06/18/24: Urine Bilirubin Negative (Negative) 06/18/24 00: Urine Urobilinogen Negative (Negative) 06/18/24 00:28 Ur Leukocyte Esterase Negative (Negative) 06/18/24 00: Urine WBC (Auto) 0-5 /hpf (0-5) 06/18/24 00:28 Urine RBC (Auto) 3-5 /hpf (0-2) H 06/18/24 00: U Hyaline Cast (Auto) 0-2 /lpf (0-2) 06/18/24 00: U Epithel Cells (Auto) 6-10 /hpf (0-2) H 06/18/24 00:28 Urine Bacteria (Auto) 2+ (None Seen) H 06/18/24 00:28 Urine Test Negative (Negative) 06/18/24 00:28 Urine Opiates Screen Pos (Neg) H 06/18/24 00:28 Ur Methadone, Qual Neg (Neg) 06/18/24 00:28 Urine Fentanyl Screen Neg (Neg) 06/18/24 00:28 Urine Barbiturates Neg (Neg) 06/18/24 00:28 Ur Phencyclidine (PCP) Neg (Neg) 06/18/24 00:28 U Amphetamin/Meth Scrn Neg (Neg) 06/18/24 00:28 MDMA (Ecstasy) Screen Neg (Neg) 06/18/24 00:28 U Benzodiazepines Scrn Neg (Neg) 06/18/24 00:28 Ur Cocaine Metabolite Neg (Neg) 06/18/24 00:28 U Marijuana (THC) Screen Neg (Neg) 06/18/24 00:28 Impressions Abdomen/Pelvis CT 06/18/24 00:25 EXAM: CT abd pelvis IV con only CLINICAL HISTORY: RLQ pain and flank pain, decreased urine output and nausea. pt states she had similar pain yesterday that improved after she urinated. pt states hx of kidney stones pt denies preg 94 ml opti 320 PW/GS TECHNIQUE: Contiguous axial images were obtained from the level of the diaphragm to the pubic symphysis with intravenous contrast. Coronal and sagittal reconstructions were likewise performed and indicated to increase the sensitivity for detecting clinically relevant pathology. If IV contrast material had not been administered, the likelihood of detecting abnormalities relevant to the patient's condition would have been substantially decreased. CT scan was performed according to ALARA (as low as reasonable achievable). COMPARISON: 04/28/2016 02:01:29 LABEL DRIER, images only FINDINGS: The visualized lung bases shows atelectatic bands in right lower lobe and lingula. The liver is enlarged in size measures 23 mm in cranio-caudal length and shows normal attenuation. No focal liver lesions are seen. There is no intra or extrahepatic biliary ductal dilatation. Hepatic vasculature is patent. The gallbladder is not seen with cholecystectomy clips in GB fossa. The spleen, pancreas, and adrenal glands are unremarkable. Right kidney appears bulky with mild dilatation of pelvicalyceal system and proximal ureter with mild ghanshyam-ureteric fat stranding. Tiny radiodense focus seen at right vesicoureteric junction. Left kidney is normal in size and attenuation. There is no hydronephrosis or perinephric fat stranding. No renal calculi or renal masses are identified. Bilateral simple renal cysts largest measuring 64x66 mm in lower pole of right kidney. The ureters are normal in caliber and no ureteral calculi are seen. The bladder is normal in contour. Pelvic viscera are unremarkable. No focal or diffuse bowel wall thickening or evidence of bowel obstruction is identified. The appendix is visualized in the right lower quadrant and appears within normal limits. 23x21 mm unilocular cystic lesion in left adnexa. Uterus is not visualised. Abdominal and pelvic vasculature is patent. No adenopathy or fluid collections are seen. No aggressive appearing osseous lesions are identified. IMPRESSION: 1. Right kidney appears bulky with mild dilatation of pelvicalyceal system and proximal ureter with mild ghanshyam-ureteric fat stranding. Tiny radiodense focus seen at right vesicoureteric junction-- suggestive of right vesicoureteric junction calculus causing obstructive changes. Stable size of calculus as compared to prior study. 2. Hepatomegaly. 3. Bilateral simple renal cysts. 4. Status post cholecystectomy - unchanged from previous study. 5. Uterus is not visualised - please correlate with post-operative history -new finding compared to previous study. 6. 23x21 mm unilocular cystic lesion in left adnexa - interval reduction in size compared to previous study. Electronically signed by Darwin Fairbanks 06-18-2024 02:05 AM Code Status & VTE Plan VTE Prophylaxis Plan VTE Prophylaxis will be ordered: Yes PG Care Time/CCT Total # of Minutes Spent Total Time Spent with Patient: Total time spent is greater than 50% in coordination of care (as documented) at patient's floor/unit and/or counseling patient: Coding Level of Care Code 80282 INT INP/OBS CARE 3/75MIN Diagnoses Flank pain R10.9 JESSICA (acute kidney injury) N17.9 Hypertension I10
[2024-06-18] MEDS ORDERED: hydrOXYzine HCl 25 MG TAB PO PRN (04:25)
[2024-06-18] MEDS ORDERED: ONDANSETRON INJ 2 MG/ML 2 ML VIAL IV PRN ×2 (04:25→08:20)
[2024-06-18] MEDS ORDERED: HYDROmorphone INJ 0.5 MG/0.5 ML SYR IV PRN (04:25)
[2024-06-18] MEDS: LACTATED RINGER'S 1,000 ML IV SCH (05:03)
[2024-06-18] MEDS: TAMSULOSIN HCL 0.4 MG CAP PO ONE (05:04)
[2024-06-18] MEDS: HYDROmorphone INJ 0.5 MG/0.5 ML SYR IV PRN (05:04)
[2024-06-18] MEDS ORDERED: fentaNYL citrate PF 100 MCG/2 ML VIAL IV PRN (08:20)
[2024-06-18] MEDS ORDERED: ATROPINE SULFATE 0.1 MG/ML 10ML SYR IV PRN (08:20)
--- NOTE | 2024-06-18 08:20 | Anesthesiology Consultation ---
Date of Service June 18, 2024 Assessment & Plan (1) Encounter for pre-operative examination: Chart Review Chart Review: Acceptable Risk for Surgery History Surgery Operation Date: 06/18/24 09:00 Proposed Procedures p Cystoscopy, Ureteral Stent Insertion - Right - Kendrick Sandoval MD Height/Weight Height: 5 ft 4 in Weight: 117.1 kg Allergies Allergy/AdvReac Type Severity Reaction Status Date / Time aspirin Allergy Severe CAN'T Verified 05/30/24 14:36 BREATH Fish Containing Products Allergy Unknown allergic Verified 06/18/24 04:28 to all SEAFOOD shellfish derived Allergy Unknown all Verified 06/18/24 04:28 seafood eptinezumab-jjmr AdvReac Severe Throat Verified 05/30/24 14:36 [From Peggy] closing, coughing, chest pain, blood shot eyes and re Medications Home Medications Medication Instructions Recorded Confirmed Last Taken citalopram 20 mg tablet 20 mg PO DAILY 08/31/22 06/18/24 09/22/23 amlodipine 2.5 mg tablet 2.5 mg PO DAILY #90 tabs 09/15/22 06/18/24 09/22/23 hydrochlorothiazide 12.5 mg capsule 12.5 mg PO DAILY #90 caps 09/15/22 06/18/24 09/22/23 blood pressure kit-extra large #1 ea 07/12/23 06/18/24 Unknown hydroxyzine HCl 25 mg tablet 25 mg PO TID PRN Anxiety 09/03/23 06/18/24 Unknown duloxetine 20 mg capsule,delayed 10 mg PO DAILY 11/03/23 06/18/24 Unknown release propranolol 20 mg tablet 20 mg PO BID 30 days #60 tabs 11/10/23 06/18/24 Unknown famotidine 20 mg tablet 20 mg PO DAILY #90 tabs 11/24/23 06/18/24 Unknown fenofibrate nanocrystallized 48 mg 48 mg PO DAILY #90 tabs 11/24/23 06/18/24 Unknown tablet (Tricor) olmesartan 40 mg tablet 40 mg PO DAILY #90 tabs 02/23/24 06/18/24 Unknown rosuvastatin 40 mg tablet 40 mg PO DAILY #90 tabs 02/23/24 06/18/24 Unknown magnesium oxide 400 mg PO DAILY 30 days #30 tabs 02/24/24 06/18/24 Unknown ubrogepant 100 mg tablet (Ubrelvy) 100 mg PO ONCE PRN migraine 02/24/24 06/18/24 Unknown headache 30 days #16 tabs fremanezumab-vfrm 225 mg/1.5 mL 225 mg (1.5 mL) subcut .[id number] 30 03/14/24 06/18/24 Unknown subcutaneous auto-injector (Ajovy) days #1.5 mL clonazepam 1 mg tablet 1 mg PO TID 03/30/24 06/18/24 Unknown oxybutynin chloride 10 mg 10 mg PO DAILY #90 tabs 05/30/24 06/18/24 Unknown tablet,extended release 24 hr Active Medications Generic Name Dose Route Start Last Admin Trade Name Freq PRN Reason Stop Dose Admin Hydromorphone HCl 0.5 mg 06/18/24 04:25 06/18/24 05:04 Hydromorphone Inj 0.5 Mg/0.5 Ml Syr IV 07/02/24 04:24 0.5 mg Q3H PRN Administration Pain (6,7,8,9,10) Lactated Ringer's 1,000 mls @ 125 mls/hr 06/18/24 04:25 06/18/24 05:03 Lr IV 06/19/24 04:24 125 mls/hr .Q8H FREYA Administration Past Medical History Medical History (Updated 06/18/24 @ 08:18 by Osmel Lowry MD) JESSICA (acute kidney injury) Migraine with aura Panic disorder Lumbar facet joint syndrome Morbid obesity with BMI of 45.0-49.9, adult Bipolar disorder History of renal calculi GERD (gastroesophageal reflux disease) Hypertriglyceridemia Seizure disorder LAST SEIZURE 15 YRS AGO> ONLY HAD DURING PREGNANY (X3) > DOESN'T FOLLOW NEURO Past Family History Family History Other Adopted Past Surgical History Surgical History H/O breast surgery (09/26/19) Needle localization, excision of bilateral breast cysts. Dr. Downing 09-26-19 S/P tubal ligation Hx of breast surgery S/P excision of ganglion cyst S/P hysterectomy S/P cholecystectomy S/P laparoscopic hysterectomy Social History Smoking Status: Current every day smoker tobacco type: cigarettes Do You Dip or Chew Tobacco: No Hx Alcohol Use: No Hx Substance Use: No substance use type: does not use Physical Exam Vital Signs Last Vital Signs Temp 36.7 C 06/18/24 07:52 Pulse 72 06/18/24 07:52 Resp 16 06/18/24 07:52 BP 153/76 H 06/18/24 07:52 Pulse Ox 95 06/18/24 07:52 O2 Del Method Nasal Cannula 06/18/24 07:52 O2 Flow Rate 2 06/18/24 07:52 Testing Laboratory Results 06/18/24 00:28 06/18/24 00:28 Urine Color Yellow 06/18/24 00:28 Urine Appearance Cloudy (Clear) A 06/18/24 00:28 Urine pH 5.0 (4.5-7.5) 06/18/24 00:28 Ur Specific [place] 1.023 (1.000-1.030) 06/18/24 00:28 Urine Protein Negative (Negative) 06/18/24 00:28 Urine Glucose (UA) Negative (Negative) 06/18/24 00:28 Urine Ketones Negative (Negative) 06/18/24 00:28 Urine Nitrite Negative (Negative) 06/18/24 00:28 Ur Leukocyte Esterase Negative (Negative) 06/18/24 00:28 Urine WBC (Auto) 0-5 /hpf (0-5) 06/18/24 00:28 Urine RBC (Auto) 3-5 /hpf (0-2) H 06/18/24 00:28 U Hyaline Cast (Auto) 0-2 /lpf (0-2) 06/18/24 00:28 U Epithel Cells (Auto) 6-10 /hpf (0-2) H 06/18/24 00:28 Urine Bacteria (Auto) 2+ (None Seen) H 06/18/24 00:28 Urine Test Negative (Negative) 06/18/24 00:28 06/18/24 00:34 POC Glucose (other) 121 H 06/18/24 00:28 Urine Test Negative Electrocardiogram Date: 06/18/24 Findings: + NSST changes and + SB @ (53)
--- NOTE | 2024-06-18 08:21 | Urology Consultation ---
Date of Consultation June 18, 2024 Assessment & Plan (1) Right distal ureteral calculus: (2) UTI (urinary tract infection), bacterial: Plan 43-year-old female who is admitted to the hospital on 06/17/2024 with right flank pain. CT scan was independently reviewed and this showed a faint right distal ureteral calculus with hydroureteronephrosis. Patient was noted to have leukocytosis of 20, creatinine that was slightly elevated above baseline at 1.25 and urinalysis that did have 2+ bacteria. She was started on ceftriaxone. Given obstructing stone, leukocytosis, mild JESSICA and positive urinalysis, recommended proceeding forth with cystoscopy, right retrograde pyelogram and right ureteral stent Risk and benefits discussed and patient provided consent Patient marked Patient already on antibiotics. History of Present Illness Attending Physician: Alec Hawthorne MD, PhD History of Present Illness 43-year-old female who is admitted to the hospital on 06/17/2024 with right flank pain. CT scan was independently reviewed and this showed a faint right distal ureteral calculus with hydroureteronephrosis. Patient was noted to have leukocytosis of 20, creatinine that was slightly elevated above baseline at 1.25 and urinalysis that did have 2+ bacteria. She was started on ceftriaxone. Allergies Allergy/AdvReac Type Severity Reaction Status Date / Time aspirin Allergy Severe CAN'T Verified 05/30/24 14:36 BREATH Fish Containing Products Allergy Unknown allergic Verified 06/18/24 04:28 to all SEAFOOD shellfish derived Allergy Unknown all Verified 06/18/24 04:28 seafood [id number] AdvReac Severe Throat Verified 05/30/24 14:36 [From Peggy] closing, coughing, chest pain, blood shot eyes and re Home Medications Medication Instructions Recorded Confirmed Type citalopram 20 mg tablet 20 mg PO DAILY 08/31/22 06/18/24 History amlodipine 2.5 mg tablet 2.5 mg PO DAILY #90 tabs 09/15/22 06/18/24 Rx hydrochlorothiazide 12.5 mg capsule 12.5 mg PO DAILY #90 caps 09/15/22 06/18/24 Rx blood pressure kit-extra large #1 ea 07/12/23 06/18/24 Rx hydroxyzine HCl 25 mg tablet 25 mg PO TID PRN Anxiety 09/03/23 06/18/24 History duloxetine 20 mg capsule,delayed 10 mg PO DAILY 11/03/23 06/18/24 History release propranolol 20 mg tablet 20 mg PO BID 30 days #60 tabs 11/10/23 06/18/24 Rx famotidine 20 mg tablet 20 mg PO DAILY #90 tabs 11/24/23 06/18/24 Rx fenofibrate nanocrystallized 48 mg 48 mg PO DAILY #90 tabs 11/24/23 06/18/24 Rx tablet (Tricor) olmesartan 40 mg tablet 40 mg PO DAILY #90 tabs 02/23/24 06/18/24 Rx rosuvastatin 40 mg tablet 40 mg PO DAILY #90 tabs 02/23/24 06/18/24 Rx magnesium oxide 400 mg PO DAILY 30 days #30 tabs 02/24/24 06/18/24 Rx ubrogepant 100 mg tablet (Ubrelvy) 100 mg PO ONCE PRN migraine 02/24/24 06/18/24 Rx headache 30 days #16 tabs fremanezumab-vfrm 225 mg/1.5 mL 225 mg (1.5 mL) subcut .[id number] 03/14/24 06/18/24 Rx subcutaneous auto-injector (Ajovy) days #1.5 mL clonazepam 1 mg tablet 1 mg PO TID 03/30/24 06/18/24 History oxybutynin chloride 10 mg 10 mg PO DAILY #90 tabs 05/30/24 06/18/24 Rx tablet,extended release 24 hr Patient History Medical History (Updated 06/18/24 @ 08:21 by Kendrick Sandoval MD) JESSICA (acute kidney injury) Migraine with aura Panic disorder Lumbar facet joint syndrome Morbid obesity with BMI of 45.0-49.9, adult Bipolar disorder History of renal calculi GERD (gastroesophageal reflux disease) Hypertriglyceridemia Seizure disorder LAST SEIZURE 15 YRS AGO> ONLY HAD DURING PREGNANY (X3) > DOESN'T FOLLOW NEURO Surgical History H/O breast surgery (09/26/19) Needle localization, excision of bilateral breast cysts. Dr. Downing 09-26-19 S/P tubal ligation Hx of breast surgery S/P excision of ganglion cyst S/P hysterectomy S/P cholecystectomy S/P laparoscopic hysterectomy Family History Other Adopted Social History Smoking Status: Current every day smoker Tobacco Type: Cigarettes Age Started Using Tobacco: 14; packs per day: 0; Second Hand Exposure: No; Do You Dip or Chew Tobacco: No; Hx Alcohol Use: No Hx Substance Use: No Preferred Language: Mongolian Communication Ability: Effective Sand Digger Required: No Beliefs That Will Affect Care: None marital status: Current Living Situation: Family Current Living Situation Comment: daughter and grandson lives with patient current occupational status: unemployed Other Information That Helps Us Care for You: No Feels Safe at Home: Yes Safety Concerns: Feels Safe At This Time Childhood Exposure to Second-Hand Smoke: Yes Diet: regular Diet Comment: eats dinner and snack at 9 pm caffeine: Yes Dental Care, Regularly: Yes Physical Activity Frequency: Daily Seatbelt Use: always Sunscreen Use: No Gender Identity: Female Assistive Devices: Glasses Physical Exam Physical Exam: General: Alert and oriented, no acute distress HEENT: Normocephalic, mucous membranes moist Pulmonary: Nonlabored respirations Abdomen: Nondistended Extremities: Moves all 4 spontaneously Neuro: No gross deficits Skin: Warm, dry, no rashes noted Results & Data Vital Signs (Past 12 Hours) Vital Signs Temp Pulse Pulse Pulse Resp BP BP 06/18/24 07:52 36.7 C 72 16 153/76 H 06/18/24 07:06 69 06/18/24 04:30 06/18/24 04:28 36.8 C 70 20 173/92 H 06/18/24 04:25 71 06/18/24 04:00 67 15 158/87 H 06/18/24 03:30 62 14 163/86 H 06/18/24 03:00 61 21 172/97 H 06/18/24 02:36 70 24 06/18/24 02:32 156/88 H 06/18/24 02:18 69 21 06/18/24 02:09 182/96 H 06/18/24 02:09 62 24 06/18/24 02:09 62 182/96 H 06/18/24 02:00 62 19 06/18/24 01:59 188/95 H 06/18/24 01:54 79 21 06/18/24 01:54 74 225/111 H 06/18/24 01:51 72 24 06/18/24 01:45 75 23 06/18/24 01:30 225/111 H 06/18/24 01:27 54 L 22 06/18/24 01:24 64 22 06/18/24 01:22 235/126 H 06/18/24 01:21 74 19 235/116 H 06/18/24 01:18 60 27 H 06/18/24 00:39 95 H 22 06/18/24 00:30 253/116 H 06/18/24 00:29 234/114 H 06/18/24 00:27 66 29 H 06/18/24 00:24 78 27 H 06/18/24 00:22 251/126 H 06/18/24 00:22 66 06/18/24 00:22 37.2 C 64 16 251/126 H Pulse Ox O2 Del Method O2 Flow Rate 06/18/24 07:52 95 Nasal Cannula 2 06/18/24 07:06 06/18/24 04:30 Nasal Cannula 2 06/18/24 04:28 93 Nasal Cannula 2 06/18/24 04:25 06/18/24 04:00 95 Nasal Cannula 2 06/18/24 03:30 95 Nasal Cannula 2 06/18/24 03:00 93 Nasal Cannula 2 06/18/24 02:36 94 06/18/24 02:32 06/18/24 02:18 06/18/24 02:09 06/18/24 02:09 92 06/18/24 02:09 06/18/24 02:00 90 06/18/24 01:59 06/18/24 01:54 95 06/18/24 01:54 06/18/24 01:51 93 06/18/24 01:45 95 06/18/24 01:30 06/18/24 01:27 92 06/18/24 01:24 91 06/18/24 01:22 06/18/24 01:21 91 Room Air 06/18/24 01:18 91 06/18/24 00:39 96 Room Air 06/18/24 00:30 06/18/24 00:29 06/18/24 00:27 95 06/18/24 00:24 95 06/18/24 00:22 06/18/24 00:22 06/18/24 00:22 96 Room Air PG Care Time/CCT Total # of Minutes Spent Total Time Spent with Patient: Total time spent is greater than 50% in coordination of care (as documented) at patient's floor/unit and/or counseling patient: Coding Level of Care Code 10635 IN/OBS CONSULT LVL 3,45M Diagnoses Right distal ureteral calculus N20.1 UTI (urinary tract infection), bacterial N39.0; A49.9
[2024-06-18] MEDS ORDERED: ONDANSETRON INJ 2 MG/ML 2 ML VIAL ONE (08:28)
[2024-06-18] MEDS ORDERED: PROPOFOL IV EMULSION 10 MG/ML 20 ML VIAL IV ONE (08:28)
[2024-06-18] MEDS ORDERED: fentaNYL citrate PF 100 MCG/2 ML VIAL ONE (08:28)
[2024-06-18] MEDS ORDERED: LIDOCAINE 2% 2 ML VIAL/AMP(20MG/ML) INFIL ONE (08:28)
[2024-06-18] MEDS ORDERED: MIDAZOLAM HCL 1 MG/ML 2ML VIAL ONE ×2 (08:28→08:43)
[2024-06-18] MEDS ORDERED: KETAMINE HCL 10MG/ML SYR ONE (08:30)
[2024-06-18] MEDS ORDERED: DROPERIDOL 5 MG/2 ML VIAL ONE (08:32)
[2024-06-18] MEDS: DIATRIZOATE MEGLUMINE 30% 100ML VIAL INSTIL PRN (08:50)
[2024-06-18] MEDS ORDERED: ROSUVASTATIN CALCIUM 20 MG TAB PO SCH (09:00)
[2024-06-18] MEDS ORDERED: FENOFIBRATE NANOCRYSTALLIZED 48 MG TABLET PO SCH (09:00)
[2024-06-18] MEDS ORDERED: OXYBUTYNIN CHLORIDE XL 5 MG TABCR PO SCH (09:00)
--- NOTE | 2024-06-18 09:01 | Operative Report ---
PG Post Operative Report Pre & Post Diagnosis Operation Date: 06/18/24 09:00 Pre-Op Diagnosis: Flank Pain Post-Op Diagnosis: Flank Pain I identified the patient and participated in the time-out.: Yes Procedure Operation Date: 06/18/24 09:00 Actual Procedures p Cystoscopy, right retrograde pyelogram with radiographic interpretation ureteral Stent Insertion - Right(Right) - Kendrick Sandoval MD Surgeon Kendrick Sandoval MD Barn Manager None Estimated Blood Loss 0 Findings See Below Stone at UO and was actually dislodged in the bladder with wire placement. Still elected to place a stent given concern for infection. Stent in appropriate position. Retrograde showed moderate hydronephrosis Specimens Right ureteral calculi Drains 6 Afghan by 24 cm right ureteral stone Anesthesia Type MAC Indications 43-year-old female with a 3 mm distal right ureteral calculus, leukocytosis, JESSICA and urinalysis concerning for infection Description of Procedure After informed consent was obtained, the patient was transported operative suite. MAC anesthesia was induced. The patient was placed in dorsolithotomy position prepped and draped in a sterile fashion. They received preoperative ceftriaxone for antibiotic prophylaxis. An appropriate surgical timeout was performed. A 22 Afghan rigid scope was inserted per urethra into the bladder. Ayala cystoscopy revealed no stones or lesions. I turned my attention the right ureteral orifice and intubated this with a 5 Afghan open-ended catheter. The stone was at the right ureteral orifice and was actually dislodged into the bladder at this time. I still elected to place a stent due to concern for infection. A right retrograde pyelogram was shot which showed moderate hydronephrosis. A sensor wire was advanced into the kidney and confirmed fluoroscopically. A 6 Afghan by 24 cm right ureteral stent was deployed with a good proximal coil in the renal pelvis and a good distal coil noted in the bladder, confirmed fluoroscopically and under direct visualization, respectively. The bladder was emptied and the scope was removed. This concluded the end of the case. All counts were correct at the end of the case. I was present, scrubbed, and actively participated for the entirety of the procedure. I attest to the content of the Intraoperative Record and any orders documented therein. Any exceptions are noted below.
--- NOTE | 2024-06-18 09:32 | Anesthesiology Progress Note ---
Date of Service June 18, 2024 Anesthesia Post Procedure Vital Signs Vital Signs: Temp Pulse Pulse Pulse Resp BP BP 06/18/24 09:25 77 14 153/91 H 06/18/24 09:15 77 16 165/92 H 06/18/24 09:08 36.2 C L 84 16 144/93 H 06/18/24 08:00 06/18/24 07:52 36.7 C 72 16 153/76 H 06/18/24 07:06 69 06/18/24 04:30 06/18/24 04:28 36.8 C 70 20 173/92 H 06/18/24 04:25 71 06/18/24 04:00 67 15 158/87 H 06/18/24 03:30 62 14 163/86 H 06/18/24 03:00 61 21 172/97 H 06/18/24 02:36 70 24 06/18/24 02:32 156/88 H 06/18/24 02:18 69 21 06/18/24 02:09 182/96 H 06/18/24 02:09 62 24 06/18/24 02:09 62 182/96 H 06/18/24 02:00 62 19 06/18/24 01:59 188/95 H 06/18/24 01:54 79 21 06/18/24 01:54 74 225/111 H 06/18/24 01:51 72 24 06/18/24 01:45 75 23 06/18/24 01:30 225/111 H 06/18/24 01:27 54 L 22 06/18/24 01:24 64 22 06/18/24 01:22 235/126 H 06/18/24 01:21 74 19 235/116 H 06/18/24 01:18 60 27 H 06/18/24 00:39 95 H 22 06/18/24 00:30 253/116 H 06/18/24 00:29 234/114 H 06/18/24 00:27 66 29 H 06/18/24 00:24 78 27 H 06/18/24 00:22 251/126 H 06/18/24 00:22 66 06/18/24 00:22 37.2 C 64 16 251/126 H Pulse Ox O2 Del Method O2 Flow Rate 06/18/24 09:25 97 Oxymask 3 06/18/24 09:15 95 Oxymask 4 06/18/24 09:08 96 Oxymask 6 06/18/24 08:00 Nasal Cannula 2 06/18/24 07:52 95 Nasal Cannula 2 06/18/24 07:06 06/18/24 04:30 Nasal Cannula 2 06/18/24 04:28 93 Nasal Cannula 2 06/18/24 04:25 06/18/24 04:00 95 Nasal Cannula 2 06/18/24 03:30 95 Nasal Cannula 2 06/18/24 03:00 93 Nasal Cannula 2 06/18/24 02:36 94 06/18/24 02:32 06/18/24 02:18 06/18/24 02:09 06/18/24 02:09 92 06/18/24 02:09 06/18/24 02:00 90 06/18/24 01:59 06/18/24 01:54 95 06/18/24 01:54 06/18/24 01:51 93 06/18/24 01:45 95 06/18/24 01:30 06/18/24 01:27 92 06/18/24 01:24 91 06/18/24 01:22 06/18/24 01:21 91 Room Air 06/18/24 01:18 91 06/18/24 00:39 96 Room Air 06/18/24 00:30 06/18/24 00:29 06/18/24 00:27 95 06/18/24 00:24 95 06/18/24 00:22 06/18/24 00:22 06/18/24 00:22 96 Room Air Pain Intensity Abdomen: Pain Intensity: 10 Transfer of Care Handoff Completed per policy Notes Mental Status: alert / awake / arousable Patient Amnestic to Procedure: Yes Nausea / Vomiting: adequately controlled Pain: adequately controlled Airway Patency, RR, SpO2: stable & adequate BP & HR: stable & adequate Hydration State: stable & adequate Anesthetic Complications: no major complications apparent
[2024-06-18] MEDS: PROPRANOLOL HCL 20 MG TAB PO SCH (10:33)
[2024-06-18] MEDS: DULoxetine HCL 20 MG CAP PO SCH (10:33)
[2024-06-18] MEDS: CITALOPRAM 20 MG TAB PO SCH (10:33)
[2024-06-18] MEDS: FAMOTIDINE 20 MG TAB PO SCH (10:33)
[2024-06-18] MEDS: amLODIPine BESYLATE 5 MG TAB PO SCH (10:33)
[2024-06-18] MEDS: clonazePAM 1 MG TAB PO SCH (10:34)
[2024-06-18 11:54] VITALS: BP 155/87; RESP 16; TEMP 97.9; O2SAT 92
--- NOTE | 2024-06-18 12:03 | Discharge Summary ---
Discharge Summary Date of Service June 18, 2024 Principal Dx & Hospital Course #1 = Principal Diagnosis (1) Flank pain: Etiology of right-sided flank pain is attributed to suspected right vesico- ureteric calculus (as noted on 06/18/2024, 12:25am CT abd/pelvis with IV contrast, as a "tiny radiodense focus seen at right vesicoureteric junction...causing obstructive changes. Stable size of calculus as compared to" 04/28/2016 CT abd/pelvis). Patient subsequently underwent cystoscopy, right retrograde pyelogram with radiographic interpretation, and right ureteral stent insertion with [facility] Urologist Dr. Kendrick Sandoval on 06/18/2024, 8:59am without incident. Patient subsequently feels well and wants to go home now on 06/18/2024, 11:39am. To this end, patient was started empirically on ceftriaxone 2g IV daily x 1 dose (06/18/2024, 2:17am) in [facility] ER; patient was discharged home with an electronic prescription for cefpodoxime 200mg PO q12, #6 tablets (06/18/2024 pm - 06/21/2024 am), no refills, that was transmitted to her [facility] store [id number], [address] [place] [address] on discharge date 06/18/2024. In addition, patient was advised to hold off her home-scheduled famotidine 20mg PO daily until 06/22/2024, on which date, patient may resume taking her home- scheduled famotidine 20mg PO daily. The reason for holding off patient's home- scheduled famotidine 20mg PO daily while patient takes cefpodoxime 200mg PO q12, #6 tablets (06/18/2024 pm - 06/21/2024 am) is because cefpodoxime requires an acid pH for maximal absorption of this antibiotic. The mechanism of action of famotidine is (06/18/2024 pm - 06/21/2024 am) is to decrease gastric acid production in the stomach via histamine H2 receptor antagonism. Patient was advised to follow up with her PCP DELILAH Arguello, within 3-5 days of hospital discharge to discuss the final/official urine culture (06/18/2024, 12:28am) and blood cultures #1 and #2 (06/18/2024, 2:27am) results. Patient was also advised to follow up with her Urologist Dr. Kendrick Sandoval within 3-5 days of hospital discharge to discuss how long the right ureteral stent will remain in situ. In the interim, patient received the expulsive agent, tamsulosin 0.4mg PO x 1 dose (06/18/2024, 4:26am) while in [facility]. Patient will continue this hospital-started medication on hospital discharge home on 06/18/2024. To this end, patient was discharged home with an electronic prescription for tamsulosin 0.4mg PO daily, #7 tablets, no refills, that was transmitted to her [facility] store [id number], [address] [place] [address] on discharge date 06/18/2024. Of final note, patient was advised to stop taking her home-scheduled oxybutynin 10mg PO daily as this anti-cholinergic medication promotes urinary retention, urinary stasis, and ultimately, urinary tract infection. (2) JESSICA (acute kidney injury): Acute kidney injury is due to acute obstructive uropathy, which in turn, is due to suspected right vesico-ureteric calculus (as noted on 06/18/2024, 12:25am CT abd/pelvis with IV contrast, as a "tiny radiodense focus seen at right vesicoureteric junction...causing obstructive changes. Stable size of calculus as compared to" 04/28/2016 CT abd/pelvis). In addition to undergoing definitive intervention with cystoscopy, right retrograde pyelogram with radiographic interpretation, and right ureteral stent insertion with [facility] Urologist Dr. Kendrick Sandoval on 06/18/2024, 8:59am without incident, patient also received pharmacologic treatment utilizing: A) ceftriaxone 2g IV daily x 1 dose (06/18/2024, 2:17am) in [facility] ER; patient was discharged home with an electronic prescription for cefpodoxime 200mg PO q12, #6 tablets (06/18/2024 pm - 06/21/2024 am), no refills, that was transmitted to her [facility] store [id number], [address] [place] [address] on discharge date 06/18/2024 (to treat underlying, comcomitant acute UTI). B) 1 liter of 0.9% NS @ 999 mL/hr (06/18/2024, 2:24am). C) 1 liter of lactated Ringers @ 125 mL/hr (06/18/2024, 4:26am - 12:26pm). Patient's renal function is slightly elevated above her baseline normal creatinine range, 0.70 - 0.99 (04/16/2017 - 02/23/2024). cf., creatinine 1.25 mg/dL (06/18/2024, 12:28am). cf., creatinine 1.30 mg/dL (06/18/2024, 12:34am). Hence, patient was advised to hold OFF her home-scheduled HCTZ 12.5mg PO daily given potential for this medication to dehydrate the patient further in the setting of acute UTI. (3) Malignant essential hypertension: cf., admission BP 251/126 (06/18/2024, 12:22am). cf., discharge BP 155/ 87 (06/18/2024, 12:07pm). Etiology of malignant essential HTN with end-organ failure (cf., acute kidney injury as described in bullet #2 above) is most probably due to patient's acute right-sided flank pain, which in turn, was due to suspected right vesico- ureteric calculus (as noted on 06/18/2024, 12:25am CT abd/pelvis with IV contrast, as a "tiny radiodense focus seen at right vesicoureteric junc tion...causing obstructive changes. Stable size of calculus as compared to" 04/28/2016 CT abd/pelvis). Patient subsequently received her home-scheduled amlodipine 2.5mg PO qam and propanolol 20mg PO bid while in [facility]. Patient also received labetalol 10mg IV x 1 dose (06/18/2024, 1:24am) to treat BP 235/126 (06/18/2024, 1:22am); subsequently, patient's BP decreased to 225/111 (06/18/2024, 1:54am) to 188/95 (06/18/2024, 1:59am). Patient reports that her right-sided flank pain has resolved completely after undergoing definitive intervention with cystoscopy, right retrograde pyelogram with radiographic interpretation, and right ureteral stent insertion with [facility] Urologist Dr. Kendrick Sandoval on 06/18/2024, 8:59am without incident. Hence, patient will not continue with labetalol IV or PO on hospital discharge home on 06/18/2024. Instead, patient will continue her home-scheduled amlodipine 2.5mg PO qam and propanolol 20mg PO bid on hospital discharge home on 06/18/2024. Plan Other secondary medical issues included: Bipolar disorder -Continue Clonazepam -Continue Celexa -Continue Cymbalta -Continue Hydroxyzine GERD -Asymptomatic with no complaints of water brash in mouth while in [facility]. As stated in bullet #1 above, patient was advised to hold off her home-scheduled famotidine 20mg PO daily until 06/22/2024, on which date, patient may resume taking her home-scheduled famotidine 20mg PO daily. The reason for holding off patient's home-scheduled famotidine 20mg PO daily while patient takes cefpodoxime 200mg PO q12, #6 tablets (06/18/2024 pm - 06/21/2024 am) is because cefpodoxime requires an acid pH for maximal absorption of this antibiotic. The mechanism of action of famotidine is (06/18/2024 pm - 06/21/2024 am) is to decrease gastric acid production in the stomach via histamine H2 receptor antagonism. Hypertriglyceridemia -Asymptomatic. Patient was advised to hold off her home-scheduled fenofibrate 48mg PO daily and rosuvastatin 40mg PO daily until 06/22/2024, given the potential for either/both medications to cause dyspepsia as patient starts/completes cefpodoxime 200mg PO q12, #6 tablets (06/18/2024 pm - 06/21/2024 am) to treat acute UTI. Disposition. Code status, FULL CODE @ home. ACLS was never performed. There were no adverse events noted with this hospitalization. Condition of patient remains fair. Patient demonstrated complete resolution of her admitting complaint of acute onset of right-sided flank pain, after undergoing definitive intervention with cystoscopy, right retrograde pyelogram with radiographic interpretation, and right ureteral stent insertion with [facility] Urologist Dr. Kendrick Sandoval on 06/18/2024, 8:59am without incident. As patient demonstrated unexpectedly rapid clinical improvement while in [facility] overnight from 06/18/2024, 12:22am to 06/18/2024, 11:49am, patient was discharged back to her home on 06/18/2024, 12:02pm, instead of having to stay the originally anticipated 2 midnights in [facility]. Patient was advised to follow up with her PCP DELILAH Arguello within 3-5 days of hospital discharge to discuss the final/official urine culture (06/18/2024, 12:28am) and blood cultures #1 and #2 (06/18/2024, 2:27am) results. Patient was also advised to follow up with her Urologist Dr. Kendrick Sandoval within 3-5 days of hospital discharge to discuss how long the right ureteral stent will remain in situ. In the interim, patient received the expulsive agent, tamsulosin 0.4mg PO x 1 dose (06/18/2024, 4:26am) while in [facility]. Patient will continue this hospital-started medication on hospital discharge home on 06/18/2024. To this end, patient was discharged home with an electronic prescription for tamsulosin 0.4mg PO daily, #7 tablets, no refills, that was transmitted to her [facility] store [id number], [address] [facility] [place] [address] on discharge date 06/18/2024. Discharge time, 35 minutes. Of this time period, 17 minutes were spent in coordinating patient's discharge. Admission HPI Per Admitting Provider Soha Londono is a 43yo female presenting with acute onset of right-sided flank pain since 06/16/2024. Patient initially had left sided flank pain which resolved and was replaced with right sided flank pain and dysuria. Nausea as well. Similar to prior episodes of renal stones although more severe. In the ER patient hypertensive on arrival which responded to IV Labetalol Pain improved with IV Dilaudid ER Course: MOrphine 8mg x 2 doses Zofran 4mg IV Labetalol 10mg IV NSS x 3L Ceftriaxone 2gm Dilaudid x 1mg Discharge Exam General: comfortable, coherent, cooperative. Wide awake and alert. Not confused, lethargic, or obtunded. Patient speaks in complete, fluent, and articulate sentences without pause, interruption, cough, or wheeze. HEENT: normocephalic, atraumatic. EOMI, PERRL. No nystagmus, gaze paresis, anisocoria, miosis, mydriasis, hyphema, chemosis, scleral icterus, conjunctivitis, or pterygium. No otorrorhea. No rhinorrhea. No pharyngeal discharge or exudate. Neck: suppler, no stridor, bruit, goiter, JVD, or HJR. Lymph: no cervical, supraclavicular, infraclavicular, axillary, epitrochlear, or inguinal adenopathy. Chest: symmetric rise and fall with respiration. Non-tender to palpation. Lungs: clear to auscultation and percussion. No audible expiratory wheeze, egophony, pectoriloquy, increase in tactile fremitus, or flatness/dullness to percussion at the bases. Heart: RRR, S1 and S2 noted. No S3 or S4 summation gallop. No tripartite friction rub. Grade II/ early systolic murmur @ LLSB, not radiating to the carotids, the axilla, or back. Invariant in regards to the respiratory cycle. Abdomen: soft, non-tender, non-distended. No rebound, guarding, Martin's sign, or organomegaly. Bowel sounds auscultated in all 4 quadrants. Extremities: no clubbing, cyanosis, or edema. 2+ pedal pulses bilaterally. Skin: no decubitus ulcer, exanthem, or enanthem. Neurology: alert and oriented in regards to person, place, and time. DTR+ and symmetric. 5/5 motor strength in all 4 extremities, both proximally and distally. No tremors, tics, or myoclonus. Urology: no macias catheter. No urethral discharge. Discharge Plan Discharge Items Patient Disposition: Home - Self-Care Reason For Visit: FLANK PAIN Discharge Diagnosis: Acute obstructive uropathy due to [id number] right vesico-ureteric junction calculus Non-emergency contact: Primary Care Provider and Urologist Call non-emergency contact if: you have any medication questions Follow-up/Referrals: Katalina Alves CRNP [Primary Care Provider] - 06/26/24 11:00 am Kendrick Sandoval MD [Physician] - (PLEASE CALL DR SANDOVAL'S OFFICE WEDNESDAY MORNING TO SCHEDULE A FOLLOW-UP APPOINTMENT WITHIN 3-5 DAYS) Diet: Heart Healthy, Low Fat and Low Sodium (2gm) Addtl Attending Provider Instructions: See your PCP DELILAH Arguello, and your urologist Dr. Kendrick Sandoval, both within 3-5 days of hospital discharge. Pending Studies at Discharge: Yes Studies:: Final/official urine culture (06/18/2024, 12:28am) results Stand-Alone Forms: My [facility] People and Pages, Smoking Cessation Medications and DC Order Prescriptions: New cefpodoxime 200 mg tablet 200 mg PO Q12H Qty: 6 0RF Rx Instructions: must administer with a meal/food tamsulosin 0.4 mg capsule 0.4 mg PO DAILY Qty: 7 0RF Continued amlodipine 2.5 mg tablet 2.5 mg PO DAILY Qty: 90 3RF (DME) blood pressure kit-extra large Kit See Rx Instructions .Route Qty: 1 0RF Rx Instructions: As directed Ajovy Autoinjector 225 mg/1.5 mL auto-injector 225 mg subcut .[id number] 30 Days Qty: 1.5 2RF duloxetine 20 mg capsule,delayed release(DR/EC) 10 mg PO DAILY propranolol 20 mg tablet 20 mg PO BID 30 Days Qty: 60 2RF citalopram 20 mg tablet 20 mg PO DAILY olmesartan 40 mg tablet 40 mg PO DAILY Qty: 90 3RF Ubrelvy 100 mg tablet 100 mg PO ONCE PRN (Reason: migraine headache) 30 Days Qty: 16 4RF Rx Instructions: Take 1 tab at onset of attack. May repeat dose in 2 hours if pain persists. Limit 200mg in 24 hours. magnesium oxide 400 mg magnesium tablet 400 mg PO DAILY 30 Days Qty: 30 1RF hydroxyzine HCl 25 mg tablet 25 mg PO TID PRN (Reason: Anxiety) clonazepam 1 mg tablet 1 mg PO TID Held hydrochlorothiazide 12.5 mg capsule 12.5 mg PO DAILY Qty: 90 3RF Hold Instructions: Resume on 06/22/24. famotidine 20 mg tablet 20 mg PO DAILY Qty: 90 3RF Hold Instructions: Resume on 06/22/24. fenofibrate nanocrystallized [Tricor] 48 mg tablet 48 mg PO DAILY Qty: 90 3RF Hold Instructions: Resume on 06/22/24. rosuvastatin 40 mg tablet 40 mg PO DAILY Qty: 90 3RF Hold Instructions: Resume on 06/22/24. Discontinued oxybutynin chloride 10 mg tablet extended release 24hr 10 mg PO DAILY Qty: 90 3RF Discharge Orders: Discharge Order (Routine); Ordered 06/18/24 Ordered By: Alec Hawthorne Admission Data Admit Date/Time: 06/18/24 03:04 Attending Provider: Alec Hawthorne Admit Provider: Shayy Trivedi Primary Care Provider: Katalina Alves Other Providers: Kendrick Sandoval; Shayy Trivedi Hospital Stay Data Consultations 06/18/24 02:25 Consult Urology Routine 06/18/24 02:42 ED Decision to Admit Stat Procedures Performed Operation Date: 06/18/24 09:00 Actual Procedures p Cystoscopy, Ureteral Stent Insertion - Right(Right) - Kendrick Sandoval MD Diagnostic Imagining Performed 06/18/24 FL retrograde includes kub Routine 06/18/24 00:25 CT abd pelvis IV con only Stat Pending Results Patient Have Any Pending Studies at Discharge: Yes Discharge Instructions Given to Patient (Per Discharging Provider) See your PCP DELILAH Arguello, and your urologist Dr. Kendrick Sandoval, both within 3-5 days of hospital discharge. Total Time Total Time Spent Total Time Spent (In Minutes): Discharge time, 35 minutes. Of this time period, 17 minutes were spent in coordinating patient's discharge. Coding Level of Care Code 18310 INP/OBS DISCH >30 MIN Diagnoses Flank pain R10.9 JESSICA (acute kidney injury) N17.9 Malignant essential hypertension I10
[2024-06-18 12:08] VITALS: PULSE 78
[2024-06-19] MEDS ORDERED: cefTRIAXone SODIUM 2,000 MG/50 ML BAG IV SCH (06:00)
--- NOTE | 2024-06-19 10:53 | Fluoroscopy Report ---
FL retrograde includes kub CLINICAL HISTORY: STONEfollow-up study in patient with history of kidney stones COMPARISON STUDY: CT of same day FLUOROSCOPY TIME: 6.9 seconds FLUOROSCOPY IMAGES: 2 EXPOSURE DOSE: 4.12 mGy FINDINGS: Status post placement of a right ureteral stent, proximal portion within satisfactory posit ioning. The distal portion was not imaged. IMPRESSION: Fluoroscopic assistance as above. ACT 112: Negative or not required by law. Electronically signed by: Florentin Smith M.D. 06/19/2024 10:52 AM
--- NOTE | 2024-06-19 11:07 | Coding Query ---
CODING QUERY To promote full compliance with coding requirements relating to patient care, provider participation is requested in all cases of valve lapper uncertainty. Please assist us with the question(s) below: Clinical Indicators: ED Note: * A CT scan of the abdomen pelvis did reveal right hydronephrosis and probable pyelonephritis with an obstructing renal pelvis stone suspected. This is consistent and concerning for severe sepsis especially given the JESSICA. * Patient with findings of severe sepsis secondary to obstructing renal stone requiring resuscitation and management of care. * Vitals: Temp - 37.2 C; Pulse - 64; Resp - 16; BP - 251/126; Pulse Ox - 96 Labs: * WBC - 20.18 * Lactate - 1.7 * Procalcitonin - 0.09 * Anion Gap - 9 Coding Question(s): Without further mention of sepsis in the medical record, are you able to further specify the diagnosis of sepsis as: ( ) Ruled in ( ) Ruled out ( ) Other (please specify) (xxx ) Unable to determine. Thank you Carin Bermudez Principal Diagnosis: "that condition established after study, to be chiefly responsible for occasioning the admission of the patient to the hospital for care." Co-Existing Principal Diagnosis: "when two or more diagnoses equally meet the criteria for principal diagnosis as determined by the circumstances of admission, diagnostic work up, and/or therapy provided, and the Alphabetic Index, Tabular List, or another coding guideline does not provide sequencing direction, any one of the diagnoses may be sequenced first." "When the physician has documented what appears to be a current diagnosis in the body of the record, but has not included the diagnosis in the final diagnostic statement, the physician should be asked whether the diagnosis should be added." (Source Coding Clinic 2 QTR90. p3-4) ALESHA
--- NOTE | 2024-06-19 21:54 | Electrocardiogram Report ---
Test Reason : Blood Pressure : */* mmHG Vent. Rate : 53 BPM Atrial Rate : 53 BPM P-R Int : 144 ms QRS Dur : 86 ms QT Int : 414 ms P-R-T Axes : 13 11 -10 degrees QTcB Int : 388 ms Sinus bradycardia Nonspecific T wave abnormality Abnormal ECG When compared with ECG of 22-Sep-2023 13:02, Vent. rate has decreased by 27 bpm T wave inversion now evident in Inferior leads Nonspecific T wave abnormality, improved in Lateral leads Confirmed by Sterling Clark ([id number]) on 06/19/2024 9:54:12 PM Referred By: REFERRED SELF Confirmed By: Sterling Clakr
[2024-06-21 15:31] LABS: Codeine Urine NEGATIVE ng/mL (<50); Hydrocodone Urine NEGATIVE ng/mL (<50); Hydromor Urine NEGATIVE ng/mL (<50); Morphine Urine NEGATIVE ng/mL (<50); Norhydrocodone Conf Ur NEGATIVE ng/mL (<50); Noroxycodone Urine 963 ng/mL (<50); Oxycodone Urine 1820 ng/mL (<50); Oxymorph Urine 2000 ng/mL (<50)
[2024-06-26 23:38] LABS: Component 2 DNR; Source RIGHT URETERAL STONE
== END 2024-06-18 12:33 | disposition home or self-care (01) | DRG 660 ==
LOC: ED 00:13 → 2N 03:04 → SUATTDRO 03:04 → 2N 04:07